=== PATIENT | female | born 1950 | race Caucasian/White ===

== ENCOUNTER → 2022-07-12 | Outpatient (CLI) | payer MEDICARE, SELFPAY ==
--- NOTE | 2022-07-12 08:53 | BI_ITS ---
MAMMOGRAPHY - BILATERAL SCREENING REASON FOR EXAM: Female, 71 years old. Routine annual screening examination. PERTINENT HISTORY: Non-contributory. TECHNIQUE: Digital bilateral breast stanton (3D mammographic acquisition) in the CC and MLO projections. 2-D mediolateral oblique (MLO) and craniocaudad (CC) views of both breasts were obtained. CAD: Full Field Digital Mammography with Computer Added Detection was performed. COMPARISON: Comparison is made with prior outside examination dated October 19, 2020. FINDINGS: Breast Composition: The breasts are heterogeneously dense, which may obscure small masses. There are no dominant masses or suspicious calcifications. No other significant abnormalities are identified. There has been no significant change since the prior study. BI/SCRN MAMM (CAD)W/STANTON BILAT IMPRESSION: Stable bilateral screening mammogram. Yearly follow-up mammogram recommended. (A) ASSESSMENT CATEGORY: BIRADS Category 1: Negative. A letter regarding these results will be sent to the patient by the facility within 30 days. Approximately 10% of breast cancers are not detected by mammography. A normal mammogram should not delay biopsy of a clinically suspicious abnormality. [id number] Electronically Signed: Yunior Butler MD at 13:40 EDT ,
--- NOTE | 2022-07-12 09:00 | BD_ITS ---
STUDY: DUAL ENERGY X-RAY ABSORPTIOMETRY / DXA REASON FOR EXAM: Female, 71 years old. [id number] TECHNIQUE: Bone Mineral Density (BMD) measurements of lumbar spine and bilateral hips were obtained. COMPARISON: None. FINDINGS: Lumbar Spine (L1-L4): g/cm2 (1.056) / T-score (0.1) / Z-score (2.3) Findings are suggestive of normal bone density with a low fracture risk. Left Femur Total: g/cm2 (0.642) / T-score (-2.5) / Z-score (-0.9) Left Femoral Neck: g/cm2 (0.594) / T-score (-2.3) / Z-score (-0.4) Right Femur Total: g/cm2 (0.648) / T-score (-2.4) / Z-score (-0.8) Right Femoral Neck: g/cm2 (0.529) / T-score (-2.9) / Z-score (-1.0) BD/Dexa Bone Density Study IMPRESSION: The patient is considered osteoporotic as outlined below according to World [employer] Organization (WHO) criteria with a high fracture risk. Reference Information: The T-score is the number of standard deviations above or below the standard which is normal for young adults at their peak bone mineral density. The World Health Organization (WHO) interprets the T-scores as follows: Above -1 Normal bone density Between -1 and -2.5 Osteopenia Equal to / or below -2.5 Osteoporosis As a practical clinical guideline, osteopenia may be graded as follows: Mild -1 through -1.5 Moderate -1.6 through -2.0 Severe -2.1 through -2.4 The Z-score is the number of standard deviations above or below age-matched controls. A Z-score of less than -1.5 would be considered abnormal. References: 1. NIH Osteoporosis and Related Bone Diseases www osteo.org 2. International Society for Clinical Densitometry www iscd.org 3. National Osteoporosis Foundation www nof.org Electronically Signed: Yunior Butler MD at 9:04 EDT ,
== END | disposition home or self-care (01) ==
PROVIDERS: PCP Internal Medicine; Referring Provider Internal Medicine; Visit Provider Internal Medicine
DX: Z12.31 Encounter for screening mammogram for malignant neoplasm of breast (principal); Z78.0 Asymptomatic menopausal state
CPT/HCPCS: 77063; 77067; 77080

== ENCOUNTER → 2023-11-06 | Outpatient (CLI) | payer MEDICARE, OTHER, SELFPAY ==
--- NOTE | 2023-11-06 14:09 | VDLE_ITS ---
Reason For Study: RLE Swelling RIGHT GSV is normal. CFV is compressible, spontaneous, phasic, competent and demonstrates normal augmentation. FV is compressible, spontaneous, phasic, competent and demonstrates normal augmentation. POP V is compressible, spontaneous, phasic, competent and demonstrates normal augmentation. T/P Trunk is compressible. PTV is compressible. RT PerV is compressible. Procedure This is a venous duplex using B-mode, color flow and spectral Doppler. Exam performed in department. The exam was diagnostic. A preliminary report was called and/or faxed to [facility]. VL/Venous Duplex US, Unilateral Interpretation Summary Deep veins of the right lower extremity are patent and compressible segmentally . There is no evidence of right lower extremity deep vein thrombosis. Valvular competence juan r ears intact within the proximal deep venous system on the right . The right great saphenous vein a ppears patent and compressible segmentally. Ordering Physician: Doris Smith Referring Physician: Lynn Woodruff Performed By: Ozzy Holloway RVT
== END | disposition home or self-care (01) ==
LOC: CVS 14:09
PROVIDERS: PCP Internal Medicine; Referring Provider Nurse Practitioner Family; Visit Provider Nurse Practitioner Family
DX: M79.604 Pain in right leg (principal)
CPT/HCPCS: 93971

== ENCOUNTER → 2024-07-22 | Outpatient (CLI) | payer MEDICARE, OTHER, SELFPAY ==
--- NOTE | 2024-07-22 11:40 | BI_ITS ---
EXAM: SCRN MAMM (CAD)W/STANTON BILAT DATE: 07/22/2024 CLINICAL HISTORY: F, Age 73 y/o , SCRN MAMM (CAD)W/STANTON BILAT Prior needle biopsy. BREAST CANCER RISK ASSESSMENT: Not assessed. TECHNIQUE: Bilateral screening digital breast tomosynthesis with 2D and 3D images. Computer aided detection. COMPARISON: Prior exam(s) dated July 12, 2022.. FINDINGS: TISSUE DENSITY: The breast tissue is heterogenously dense, which may obscure small masses. Bilateral Breast Mammographic Findings: There is a questionable 1.3 cm nodule in the deep central portion of the right breast as seen on the craniocaudad projection. The patient will be recalled for additional views. BI/SCRN MAMM (CAD)W/STANTON BILAT IMPRESSION: OVERALL FINAL ASSESSMENT: BIRADS 0 Incomplete: Need additional imaging evaluati on and/or prior mammograms for comparison. RECOMMENDATION: 90 degree lateral and compression spot views of the right breast as described. A letter with findings and recommendations will be mailed to the patient. Reading Location: [place] [id number]
--- NOTE | 2024-07-22 11:44 | BD_ITS ---
PROCEDURE: DEXA BONE DENSITY STUDY 07/22/2024 REASON FOR EXAM: F, age 73 y/o . Postmenopausal. TECHNIQUE: DXA scan of sites with data reported below. REFERENCE LINKS: [facility] Adult Positions COMPARISON: July 12, 2022. FINDINGS: BMD and T-SCORES Lumbar spine: 1.034 g/cm2, T-score -0.1 Levels: L1 through L4 Change from prior: Worsening of 2.1%. Left femoral neck: 0.720 g/cm2, T-score -1.2 Femoral neck comparison data not recommended for monitoring change. Left total hip: 0.637 g/cm2, T-score -2.5 Change from prior: Worsening by 0.8%. Right femoral neck: 0.525 g/cm2, T-score -2.9 Femoral neck comparison data not recommended for monitoring change. Right total hip: 0.595 g/cm2, T-score -2.8 Change from prior: Loss of 8.2%. The World Health Organization has defined the following categories based on bone density: Normal bone density: T-score equal to or greater than -1.0 Osteopenia: T-score between -1.0 and -2.5 Osteoporosis: T-score equal to or less than -2.5 The patient does meet the pharmacological treatment recommendations for prevention of osteoporosis. BD/Dexa Bone Density Study IMPRESSION: OSTEOPOROSIS. Recommend follow-up as clinically warranted. Reading Location: [place] [id number]
== END | disposition home or self-care (01) ==
PROVIDERS: PCP Internal Medicine; Referring Provider Internal Medicine; Visit Provider Internal Medicine
DX: Z12.31 Encounter for screening mammogram for malignant neoplasm of breast (principal); Z78.0 Asymptomatic menopausal state
CPT/HCPCS: 77063; 77067; 77080

== ENCOUNTER → 2024-07-25 | Outpatient (CLI) | payer MEDICARE, OTHER, SELFPAY ==
--- NOTE | 2024-07-25 12:40 | BI_ITS ---
EXAM: DIAG MAMM W/CAD, UNILAT N/A CLINICAL HISTORY: F, Age 73 y/o , ABD JAYDEN TECHNIQUE: Bilateral Diagnostic digital breast tomosynthesis with 2D and 3D images. Computer aided detection. Compression spot views were obtained. COMPARISON: Prior exam(s) dated July 22, 2024.. FINDINGS: TISSUE DENSITY: The breast tissue is heterogenously dense, which may obscure small masses. Bilateral Breast Mammographic Findings: The questionable density seen on the screening mammogram most likely represents asymmetrical breast tissue. Targeted sonographic correlation recommended. BI/DIAG MAMM W/CAD, UNILAT IMPRESSION: OVERALL FINAL ASSESSMENT: BIRADS 0 Incomplete: Need additional imaging evaluati on and/or prior mammograms for comparison.. RECOMMENDATION: Targeted sonographic correlation recommended. A letter with findings and recommendations will be mailed to the patient. Reading Location: [place] [id number]
--- NOTE | 2024-07-25 13:12 | US_ITS ---
PROCEDURE: BREAST LIMITED UNILATERAL 07/25/2024 REASON FOR EXAM: ABN MAMM TECHNIQUE: Targeted right breast ultrasound. COMPARISON: Prior mammogram dated July 25, 2024 and July 22, 2024. FINDINGS: Right breast ultrasound was targeted to the right axillary region.. There is a 1.5 cm x 0.8 cm x 0.6 cm benign-appearing lymph node at the 11 o'clock position of the breast at 10 cm from the nipple. US/Breast Limited Unilateral IMPRESSION: 1.5 cm x 0.8 cm x 0.6 cm benign-appearing lymph node at the 11 o'clock position of the breast at 10 cm from the nipple. Follow-up code: Routine Follow-up. BI-RADS category 2. Reading Location: [place] [address]
== END | disposition home or self-care (01) ==
PROVIDERS: PCP Internal Medicine; Referring Provider Internal Medicine; Visit Provider Internal Medicine
DX: R92.8 Other abnormal and inconclusive findings on diagnostic imaging of breast (principal)
CPT/HCPCS: 76642; 77065

== ENCOUNTER → 2024-09-26 | Outpatient (CLI) | payer MEDICARE, OTHER, SELFPAY ==
--- NOTE | 2024-09-26 12:17 | US_ITS ---
PROCEDURE: TRANSVAGINAL NON- 09/26/2024 REASON FOR EXAM: TRANSVAGINAL ULTRASOUND Patient is postmenopausal. TECHNIQUE: TRANSVAGINAL NON- COMPARISON: None FINDINGS: Measurements: Uterus: 5.9 cm x 4 cm x 3.3 cm with a volume of 41.74 mL Endometrial Thickness: 5 mm. This is thickened for the postmenopausal state. Right Ovary: Not visualized. Left Ovary: Not visualized. Uterus: Heterogeneous echotexture of the myometrium suggestive of fibroid change with multiple punctate calcifications although no evidence of circumscribed fibroid. Endometrium: Endometrium thickening. Small amount of endometrial fluid. Right ovary: Not visualized. Left ovary: Not visualized. Other: US/Transvaginal Non- IMPRESSION: Heterogeneous echotexture of the myometrium suggestive of fibroid change althou gh no focal fibroid is seen. Endometrial thickening with small amount of endometrial fluid. Clinical correl ation recommended for the postmenopausal state. Reading Location: [place]
--- OUTSIDE RECORDS SUMMARY | 2024-09-26 18:38 | XMS RPT_ITS | CCD ---
Author Organization [facility] CliniSynh Care Team Providers Care Corporate Wellness Coordinator Name Role Phone DAMIEN SARAH Referring Unavailable DAMIEN SARAH Attending Unavailable KERWIN MAGALLANES Referring Unavailable No, Referral Unavailable Unavailable Piotr Vasquez MD, [facility] Provi era Piotr Vasquez MD, [facility] Provi era No, Referral Unavailable Unavailable Piotr Vasquez MD, Holed[facility] Provi era HOLDEN GUY JR Referring Unavail able HOLDEN GUY JR Primary Care Unavail able MONICA RUSSELL Primary Care Unavailable HOLDEN GUY JR Referring Unavail able HOLDEN GUY JR Attending Unavail able HOLDEN GUY JR Primary Care Unavail able HOLDEN GUY JR Primary Care Unavail able JOBY GUAMAN Referring Unavailable DAWSON SANTIAGO Attending Unavailable HOLDEN GUY JR Primary Care Unavail able HOLDEN GUY JR Attending Unavail able Marcella Aguilar MD Unavailable [phone] Slaviktoria BARKLEY, Juliana Unavailable Unavailable Marcella Aguilar MD Attending Unavailable Marcella Aguilar MD Referring Unavailable Marcella Aguilar MD Consulting Unavailable Segundo , Dr. Norris Unavailable Chelsie Guevara MA Unavailable Unavailable Georgiana Cain Lizbeth Unavailable Shira YUNN, Mark Unavailable Unavailable No, Referral Unavailable Unavailable Piotr Vasquez MD, [facility] Provi era MARCELLA AGUILAR Referring Unavailable MARCELLA AGUILAR Primary Care Unavailable Marcella Aguilar MD Primary Care Provider Kacy BOND, Dr. Bailey Primary Care Provider Kacy BOND, Dr. Bailey Attending Provider Dr. Marcella Aguilar MD Referring Provider [phone] Marcella Aguilar Attending Unavailable Bonezzi, Marcella Referring Unavailable Bonezzi, Marcella Primary Care Unavailable Bonezzi, Marcella Attending Unavailable Bonezzi, Marcella Referring Unavailable Bonezzi, Marcella Primary Care Unavailable Bonezzi, Marcella Attending Unavailable Bonezzi, Marcella Referring Unavailable Bonezzi, Marcella Primary Care Unavailable Luis, Doris Attending Unavailable Luis, Doris Referring Unavailable Bonezzi, Marcella Primary Care Unavailable Allergies Allergy Classification Reported Allergen(s) Allergy Type Date of Onset Reaction(s) Facility (16 sources) PROCHLORPERAZINE EDISYLATE; Translations: [PROCHLORPERAZINE EDISYLATE] Propensity to adverse reactions to drug (disorder) 01-02-20 12 Other: See Comments [facility] Repository (10 sources) Prochlorperazine Drug Allergy Comprehensi ve Internal Medicine; [facility] Work Phone: (1 source) ALLERGIES NOT ON FILE; Translations: [ALLERGIES NOT ON FILE] Propensity to adverse reactions (disorder) [facility] Medications Current Medications Medication Drug Class(es) Dates Sig (Normalized) Sig (Original) celecoxib 200 mg oral capsule (13 sources) Nonsteroidal Anti-inflammatory Drug Start: 10-26-2021 take 1 capsule by mouth once daily celecoxib (CELEBREX) 200 mg capsule Indications: Hip pain Take 1 capsule by mouth once daily. 60 capsule 1 10/26/2021 Active Comment on above: Take 1 capsule by [facility] once daily. 24 hr felodipine 10 mg extended release oral tablet (20 sources) Dihydropyridine Calcium Channel Clement Start: 01-12-2023 take 1 tablet by mouth once daily felodipine ER (PLENDIL) 10 mg 24 hr tablet Indications: Hypertension, essential take 1 tablet by mouth every day 90 tablet 1 01/12/2023 Active Start: 02-03-2022 End: 08-02-2022 take 1 tablet by mouth once daily felodipine ER (PLENDIL) 10 mg 24 hr tablet Indications: Hypertension, essential Take 1 tablet by mouth once daily. 90 tablet 1 02/03/2022 08/02/2022 Active Start: 10-24-2021 End: 02-03-2022 felodipine ER (PLENDIL) 10 m g 24 hr tablet Comment on above: Take 1 tablet by rocco th once daily. take 1 tablet by rocco th every day hydroCHLOROthiazide 25 mg oral tablet (20 sources) Thiazide Diuretic Start: End: 023 take 1 tablet by mouth once daily hydroCHLOROthiazide 25 mg tablet Indications: Hypertension, essential TAKE 1 TABLET BY MOUTH EVERY DAY 90 tablet 06/19/2022 Active Start: 09-09-2021 End: 01-10-2022 take 1 capsule by mouth once daily hydroCHLOROthiazide (HYDRODIURIL, ESIDRIX) 12.5 mg capsule Take 12.5 mg by mouth once daily. 0 09/09/2021 01/10/2022 Discontinued (Dosage adjustment) hydroCHLOROthiaz mc daily Inactive hydroCHLOROthiaz mc daily Active End: 01-10-2022 take 1 tablet by mouth once daily hydroCHLOROthiazide (HYDRODIURIL, ESIDRIX) 12.5 mg tablet Take 12.5 mg by mouth once daily. 0 01/10/2022 Discontinued (Dosage adjustment) Comment on above: Take 1 tablet by rocco th once daily. Take 12.5 mg by mout h once daily. TAKE 1 TABLET BY ROCCO TH EVERY DAY Completed/Discontinued Medications Medication Drug Class(es) Dates Sig (Normalized) Sig (Original) carvedilol 6.25 mg oral tablet (8 sources) alpha-Adrenergic Clement, beta-Adrenergic Clement End: 02-03-2022 take 2 tablets by mouth twice daily in the evening carvedilol (COREG) 6.25 mg tablet Take 6.25 mg by mouth twice daily. Pt takes two tablets in the am and two tablets in the pm. 0 02/03/2022 Discontinued (Clinical Decision) Comment on above: Take 6.25 mg by mout h twice daily. Pt takes two tablets in the am and two tablets in the pm. olmesartan medoxomil 20 mg oral tablet (8 sources) Angiotensin 2 Receptor Clement End: 02-03-2022 take 20 mg by mouth once daily olmesartan medoxomil (OLMESARTAN ORAL) Take 20 mg by mouth once daily. 0 02/03/2022 Discontinued (Clinical Decision) Comment on above: Take 20 mg by mouth once daily. Problems Active Problems Problem Classification Problem Date Documented Date Episodic/Chronic Abdominal pain (1 source) Unspecified abdominal pain; Translations: [Unspecified abdominal pain] Onset: Episodic Anxiety disorders (16 sources) Acute stress disorder; Translations: [Stress reaction (Renamed from Acute reaction to stress)] 07-25-2022 Chronic Comment on above: had [place]--not drive able to do ADLS--looking at someone coming in Disorders of lipid metabolism (19 sources) Hyperlipidemia; Translations: [Hyperlipidemia, mild] Onset: 024 07-25-2022 Chronic Comment on above: intermittent fasting works well for herCCTA 2008 good Essential hypertension (20 sources) Hypertensive disorder; Translations: [Essential (primary) hypertension] Onset: Chronic Comment on above: tried off meds and B P up. sodium low not able to cut hctz in halfACEI and ARB did not work. did secondary work up. Fluid and electrolyte disorders (16 sources) Hyponatremia; Translations: [Hyponatremia] 07-25-2022 Episodic Comment on above: she is on HCTZ. so w ill not do urine studies but check osmol. she is on HCTZ. so w ill not do urine studies but check osmol. if stable Immunizations and screening for infectious disease (20 sources) Autoantibody level - finding; Translations: [Anti-TPO antibodies present] 04-20-2022 Episodic Nutritional deficiencies (20 sources) Vitamin D deficiency; Translations: [Vitamin D deficiency, unspecified] Onset: Chronic Comment on above: was too high ow at 5 0's willadd back cvitm D in her calcium Osteoporosis (20 sources) Senile osteoporosis; Translations: [Age-related osteoporosis without current pathological fracture] Onset: Chronic Comment on above: refuse meds. on calc uim refuse meds refuse meds. on calc uim refuse meds BD 07-18 RTFn -2.9 about same as 2019 Other connective tissue disease (1 source) Trochanteric bursitis of left hip; Translations: [Trochanteric bursitis, left hip] Episodic Other connective tissue disease (1 source) Tendinitis of hip; Translations: [Other specified enthesopathies of left lower limb, excluding foot] Episodic Other connective tissue disease (16 sources) Bursitis of left hip; Translations: [Bursitis of left hip, unspecified bursa] 07-25-2022 Episodic Comment on above: stretching helps. Other non-traumatic joint disorders (1 source) Hip pain; Translations: [Pain in unspecified hip] Episodic Other nutritional; endocrine; and metabolic disorders (20 sources) Hypervitaminosis D; Translations: [Vitamin D intoxication] Resolve d: 04-20-2022 Chronic Other conditions (20 sources) Elevated C-reactive protein; Translations: [Elevated C-reactive protein in ] 04-20-2022 Episodic Other screening for suspected conditions (not mental disorders or infectious disease) (20 sources) Patient encounter status; Translations: [Encounter for screening mammogram for malignant neoplasm of breast] Onset: Episodic Other skin disorders (1 source) Alopecia areata; Translations: [Alopecia areata, unspecified] Episodic Other skin disorders (1 source) Alopecia areata, unspecified; Translations: [Alopecia areata] Onset: Episodic Other skin disorders (20 sources) Loss of hair; Translations: [Hair loss] 04-20-2022 Episodic Phlebitis; thrombophlebitis and thromboembolism (20 sources) H/O: Deep vein thrombosis; Translations: [History of DVT (deep vein thrombosis)] 04-20-2022 Episodic Comment on above: after bunion surgery . 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] 04-20-2022 Episodic Residual codes; unclassified (20 sources) Postmenopausal state; Translations: [Postmenopausal (Renamed from Postmenopausal status)] 04-20-2022 Episodic Residual codes; unclassified (16 sources) Body mass index 20-24 - normal; Translations: [BMI 23.0-23.9, adult] 07-25-2022 Episodic Residual codes; unclassified (16 sources) Non-smoker; Translations: [Nonsmoker] 07-25-2022 Episodic Unclassified (1 source) New Onset: Unclassified (20 sources) Past or Other Problems Problem Classification Problem Date Documented Da te Episodic/Chronic Other connective tissue disease (1 source) Pain in right leg; Translations: [Pain in right leg] Onset: 11-26-2023 Episodic Other non-traumatic joint disorders (1 source) Pain in unspecified hip; Translations: [Hip pain] Onset: 10-26-2021 Episodic Unclassified (14 sources) Unspecified Diagnosis 06-23-2022 Results Test Name Value Interpretation Reference Range Facility Breast Limited Unilateralon 07-25-2024 Breast Limited Unilateral [facility] Imaging Services [address], [place] [id number] Breast Limited Unilateral MR#: [id number] Acct: [id number] Name: EMMANUELLE ABREU Rep #: [id number] : 1950 F 73 From: Yunior lópez MD PCP: Dr. Marcella Aguilar MD Status: REG CL Study: Breast Limited Unilateral Date of Exam: Exam# [id number] Ordering Dr: Marcella Aguilar MD PROCEDURE: BREAST LIMITED UNILATERAL 07/25/2024 REASON FOR EXAM: ABN MAMM TECHNIQUE: Targeted right breast ultrasound. COMPARISON: Prior mammogram dated July 25, 2024 and July 22, 2024. FINDINGS: Right breast ultrasound was targeted to the right axillary region.. There is a 1.5 cm x 0.8 cm x 0.6 cm benign-appearing lymph node at the 11 o'clock position of the breast at 10 cm from the nipple. US/Breast Limited Unilateral IMPRESSION: 1.5 cm x 0.8 cm x 0.6 cm benign-appearing lymph node at the 11 o'clock position of the breast at 10 cm from the nipple. Follow-up code: Routine Follow-up. BI-RADS category 2. Reading Location: [facility] CC: Dr. Marcella Aguilar MD Switch Box Installer: Signed Normal [facility] Breast imaging reportOrdered By: Yunior Butler on 07-25-2024 Study report [facility] Imaging Services [address] [place] [address] DIAG MAMM W/CAD, UNILAT MR#: [id number] Acct: [id number] Name: EMMANUELLE ABREU Rep #: [id number] : 1950 From: Salvador Butler MD PCP: Dr. Marcella Aguilar MD Status: REG C LI Study:DIAG MAMM W/CAD, UNILAT Date of Exam: 07/25/24 Exam# [id number] Ordering Dr: Marcella Aguilar MD EXAM: DIAG MAMM W/CAD, UNILAT N/A CLINICAL HISTORY: F, Age 73 y/o , ABD JAYDEN TECHNIQUE: Bilateral Diagnostic digital breast tomosynthesis with 2D and 3D images. Computer aided detection. Compression spot views were obtained. COMPARISON: Prior exam(s) dated July 22, 2024.. FINDINGS: TISSUE DENSITY: The breast tissue is heterogenously dense, which may obscure small masses. Bilateral Breast Mammographic Findings: The questionable density seen on the screening mammogram most likely represents asymmetrical breast tissue. Targeted sonographic correlation recommended. BI/DIAG MAMM W/CAD, UNILAT IMPRESSION: OVERALL FINAL ASSESSMENT: BIRADS 0 Incomplete: Need additional imaging evaluation and/or prior mammograms for comparison.. RECOMMENDATION: Targeted sonographic correlation recommended. A letter with findings and recommendations will be mailed to the patient. Reading Location: [place] [address] CC: Dr. Marcella Aguilar MD ~ Switch Box Installer: Signed [facility] DIAG MAMM W/CAD, UNILATon DIAG MAMM W/CAD, UNILAT [facility] Imaging Services [address] [place] [address] DIAG MAMM W/CAD, UNILAT MR#: [id number] Acct: [id number] Name: EMMANUELLE ABREU Rep #: [id number] : 1950 73 From: Yunior lópez MD PCP: Dr. Marcella Aguilar MD Status: REG CLI Study: DIAG MAMM W/CAD, UNILAT Date of Exam: 07/25/24 Exam# [id number] Ordering Dr: Marcella Aguilar MD EXAM: DIAG MAMM W/CAD, UNILAT N/A CLINICAL HISTORY: F, Age 73 y/o , ABD JAYDEN TECHNIQUE: Bilateral Diagnostic digital breast tomosynthesis with 2D and 3D images. Computer aided detection. Compression spot views were obtained. COMPARISON: Prior exam(s) dated July 22, 2024.. FINDINGS: TISSUE DENSITY: The breast tissue is heterogenously dense, which may obscure small masses. Bilateral Breast Mammographic Findings: The questionable density seen on the screening mammogram most likely represents asymmetrical breast tissue. Targeted sonographic correlation recommended. BI/DIAG MAMM W/CAD, UNILAT IMPRESSION: OVERALL FINAL ASSESSMENT: BIRADS 0 Incomplete: Need additional imaging evaluation and/or prior mammograms for comparison.. RECOMMENDATION: Targeted sonographic correlation recommended. A letter with findings and recommendations will be mailed to the patient. Reading Location: [place] [address] CC: Dr. Marcella Aguilar MD Switch Box Installer: Signed Normal [facility] Bone density reportOrdered B y: Yunior Butler on 07-22-2024 Study report Skeletal system DXA [facility] Imaging Services [address] [place] [address] Dexa Bone Density Study MR#: [id number] Acct: [id number] Name: EMMANUELLE ABREU Rep #: [id number] : 1950 F 73 From: Salvador Butler MD PCP: Dr. Marcella Aguilar MD Status: REG Marcela LIND Study:Dexa Bone Density Study Date of Exam: 07/22/24 Exam# [id number] Ordering Dr: Marcella Aguilar MD PROCEDURE: DEXA BONE DENSITY STUDY 07/22/2024 REASON FOR EXAM: F, age 73 y/o . Postmenopausal. TECHNIQUE: DXA scan of sites with data reported below. REFERENCE LINKS: ISCD Adult Positions COMPARISON: July 12, 2022. FINDINGS: BMD and T-SCORES Lumbar spine: 1.034 g/cm2, T-score -0.1 Levels: L1 through L4 Change from prior: Worsening of 2.1%. Left femoral neck: 0.720 g/cm2, T-score -1.2 Femoral neck comparison data not recommended for monitoring change. Left total hip: 0.637 g/cm2, T-score -2.5 Change from prior: Worsening by 0.8%. Right femoral neck: 0.525 g/cm2, T-score -2.9 Femoral neck comparison data not recommended for monitoring change. Right total hip: 0.595 g/cm2, T-score -2.8 Change from prior: Loss of 8.2%. The World Health Organization has defined the following categories based on bonedensity: Normal bone density: T-score equal to or greater than -1.0 Osteopenia: T-score between -1.0 and -2.5 Osteoporosis: T-score equal to or less than -2.5 The patient does meet the pharmacological treatment recommendations for prevention of osteoporosis. BD/Dexa Bone Density Study IMPRESSION: OSTEOPOROSIS. Recommend follow-up as clinically warranted. Reading Location: [place] [address] CC: Dr. Marcella Aguilar MD ~ Switch Box Installer: Signed [facility] Breast imaging reportOrdered By: Yunior Butler on 07-22-2024 Study report [facility] Imaging Services [address] [place] [address] SCRN MAMM (CAD)W/STANTON BILAT MR#: [id number] Acct: [id number] Name: EMMANUELLE ABREU ISAI Rep #: [id number] : 1950 F 73 From: Salvador Butler MD PCP: Dr. Marcella Aguilar MD Status: REG C DIOGO Study:SCRN MAMM (CAD)W/STANTON BILAT Date of Exa m: 07/22/24 Exam# [id number] Ordering Dr: Marcella Aguilar MD EXAM: SCRN MAMM (CAD)W/STANTON BILAT DATE: 07/22/2024 CLINICAL HISTORY: F, Age 73 y/o , SCRN MAMM (CAD)W/STANTON BILAT Prior needle biopsy. BREAST CANCER RISK ASSESSMENT: Not assessed. TECHNIQUE: Bilateral screening digital breast tomosynthesis with 2D and 3D images. Computeraided detection. COMPARISON: Prior exam(s) dated July 12, 2022.. FINDINGS: TISSUE DENSITY: The breast tissue is heterogenously dense, which may obscure small masses. Bilateral Breast Mammographic Findings: There is a questionable 1.3 cm nodule in the deep central portion of the right breast as seen on the craniocaudad projection. The patient will be recalled for additional views. BI/SCRN MAMM (CAD)W/STANTON BILAT IMPRESSION: OVERALL FINAL ASSESSMENT: BIRADS 0 Incomplete: Need additional imaging evaluation and/or prior mammograms for comparison. RECOMMENDATION: 90 degree lateral and compression spot views of the right breast as described. A letter with findings and recommendations will be mailed to the patient. Reading Location: [place] [address] CC: Dr. Marcella Aguilar MD ~ Switch Box Installer: Signed [facility] Dexa Bone Density Studyon Dexa Bone Density Study [facility] Imaging Services [address] [place] [id number] Dexa Bone Density Study MR#: [id number] Acct: [id number] Name: EMMANUELLE ABREU Rep #: [id number] : 1950 F 73 From: Yunior lópez MD PCP: Dr. Marcella Aguilar MD Status: REG CLI Study: Dexa Bone Density Study Date of Exam: 07/22/24 Exam# [id number] Ordering Dr: Marcella Aguilar MD PROCEDURE: DEXA BONE DENSITY STUDY 07/22/2024 REASON FOR EXAM: F, age 73 y/o . Postmenopausal. TECHNIQUE: DXA scan of sites with data reported below. [facility] COMPARISON: July 12, 2022. FINDINGS: BMD and T-SCORES Lumbar spine: 1.034 g/cm2, T-score -0.1 Levels: L1 through L4 Change from prior: Worsening of 2.1%. Left femoral neck: 0.720 g/cm2, T-score -1.2 Femoral neck comparison data not recommended for monitoring change. Left total hip: 0.637 g/cm2, T-score -2.5 Change from prior: Worsening by 0.8%. Right femoral neck: 0.525 g/cm2, T-score -2.9 Femoral neck comparison data not recommended for monitoring change. Right total hip: 0.595 g/cm2, T-score -2.8 Change from prior: Loss of 8.2%. The World Health Organization has defined the following categories based on bone density: Normal bone density: T-score equal to or greater than -1.0 Osteopenia: T-score between -1.0 and -2.5 Osteoporosis: T-score equal to or less than -2.5 The patient does meet the pharmacological treatment recommendations for prevention of osteoporosis. BD/Dexa Bone Density Study IMPRESSION: OSTEOPOROSIS. Recommend follow-up as clinically warranted. Reading Location: [place] [address] CC: Dr. Marcella Aguilar MD Switch Box Installer: Signed Normal [facility] SCRN MAMM (CAD)W/STANTON BILATo n 07-22-2024 SCRN MAMM (CAD)W/STANTON BILAT [facility] Imaging Services [address] [place] [id number] SCRN MAMM (CAD)W/STANTON BILAT MR#: [id number] Acct: [id number] Name: EMMANUELLE ABREU Rep #: [id number] : 1950 F 73 From: Yunior lópez MD PCP: Dr. Marcella Aguilar MD Status: REG CL Study: SCRN MAMM (CAD)W/STANTON BILAT Date of Exam: 06/27 09/19 Exam# [id number] Ordering Dr: Marcella Aguilar MD EXAM: SCRN MAMM (CAD)W/STANTON BILAT DATE: 07/22/2024 CLINICAL HISTORY: F, Age 73 y/o , SCRN MAMM (CAD)W/STANTON BILAT Prior needle biopsy. BREAST CANCER RISK ASSESSMENT: Not assessed. TECHNIQUE: Bilateral screening digital breast tomosynthesis with 2D and 3D images. Computer aided detection. COMPARISON: Prior exam(s) dated July 12, 2022.. FINDINGS: TISSUE DENSITY: The breast tissue is heterogenously dense, which may obscure small masses. Bilateral Breast Mammographic Findings: There is a questionable 1.3 cm nodule in the deep central portion of the right breast as seen on the craniocaudad projection. The patient will be recalled for additional views. BI/SCRN MAMM (CAD)W/STANTON BILAT IMPRESSION: OVERALL FINAL ASSESSMENT: BIRADS 0 Incomplete: Need additional imaging evaluation and/or prior mammograms for comparison. RECOMMENDATION: 90 degree lateral and compression spot views of the right breast as described. A letter with findings and recommendations will be mailed to the patient. Reading Location: [place] [address] CC: Dr. Marcella Aguilar MD Switch Box Installer: Signed Normal [facility] CT CARDIAC SCORING WO IV CON TRASTon 11-21-2023 CT CARDIAC SCORING WO IV CONTRAST Interpreted By: Xavier Guy, STUDY: CT CARDIAC SCORING WO IV CONTRAST; 11/21/2023 3:34 pm INDICATION: Signs/Symptoms:E78.5. ,E78.5 Hyperlipidemia, unspecified COMPARISON: None. ACCESSION NUMBER(S): [id number] ORDERING CLINICIAN: MARCELLA AGUILAR TECHNIQUE: Using prospective ECG gating, CT scan of the coronary arteries was performed without intravenous contrast. Coronary calcium scoring was performed according to the method of Agatston. FINDINGS: The score and distribution of calcium in the coronary arteries is as follows: LM 0, LAD 0, LCx 0, RCA 0, Total 0 The visualized mid/lower ascending thoracic aorta, is normal in size, measuring 36 mm in diameter. The heart is normal in size. No pericardial effusion is present.Main pulmonary artery is normal in caliber. There is no evidence of lymphadenopathy or mass within the visualized mediastinum.The visualized esophagus is unremarkable. The visualized segments of the lungsare normally expanded. The visualized subdiaphragmatic structures demonstrate no remarkable findings. IMPRESSION: Coronary artery calcium score of 0 *. *Coronary Artery Calcium Gated and Nongated Agatston score Score CHD Risk 0 Very low 1-99 Mildly increased 100-299 Moderately increased >300 Moderate to severely increased Vee et al. JCCT 2016 (http://dx.doi.org/10.1 016/j.jcct.2016.11.003) VIDAL 10-Year CHD Risk with Coronary Artery Calcification can be calculated using link below [email or web address]://[email or web address]-[email or web address] org/[email or web address]/MesaRis [email or web address].aspx Ivet. JACC 2014 (http://dx.doi.org/10.1 016/j.j acc.2014.08.035) MACRO: None Signed by: Xavier Guy 11/27/2023 12:43 PM Dictation workstation: [id number] [facility] Comment on above: Order Comment: PT TO BRING ORDER Venous Duplex US, Unilateral on 11-06-2023 Venous Duplex US, Unilateral [facility] Cardiovascular Services [address] [place] [address] Venous Duplex US, Unilateral 11/06/23 1426 MR#: [id number] Acct: [id number] Name: EMMANUELLE ABREU ISAI Rep #: [id number] : 1950 72 From: Akash Mares MD Attending Dr: Doris Smith, NEEDLE PUNCH MACHINE OPERATOR HELPER-C Status: REG CLI Ordering Dr: Doris Smith NEEDLE PUNCH MACHINE OPERATOR HELPER-C Date: 11/06/23 Location: [facility] Sex: F C Admitted: Reason For Study: RLE Swelling RIGHT GSV is normal. CFV is compressible, spontaneous, phasic, competent and demonstrates normal augmentation. FV is compressible, spontaneous, phasic, competent and demonstrates normal augmentation. POP V is compressible, spontaneous, phasic, competent and demonstrates normal augmentation. T/P Trunk is compressible. PTV is compressible. RT PerV is compressible. Procedure This is a venous duplex using B-mode, color flow and spectral Doppler. Exam performed in department. The exam was diagnostic. A preliminary report was called and/or faxed to [facility]. VL/Venous Duplex US, Unilateral Interpretation Summary Deep veins of the right lower extremity are patent and compressible segmentally. There is no evidence of right lower extremity deep vein thrombosis. Valvular competence appears intact within the proximal deep venous system on the right . The right great saphenous vein appears patent and compressible segmentally. Ordering Physician: Doris Smith Referring Physician: Marcella Aguilar Performed By: Ozzy Holloway, RVT 11/07/23850 Date Akash Mares MD CC: NEEDLE PUNCH MACHINE OPERATOR HELPER-C Doris Smith; Dr. Marcella Aguilar MD Date Dictated: 11/06/231425 Date Transcribed: 11/07/23850 Switch Box Installer: Signed Normal [facility] CALCIFIDIOL (60140) VIT D 25 Ordered By: Bushel Girl on 11-29-2022 25-hydroxyvitamin D [Mass/Vol] 57.1 ng/mL Normal 30.0-100.0 [facility]; [facility] Work Phone: Comment on above: Vitamin D deficiency has been defined by the [place] of[place] and an Endocrine Society practice guideline as alevel of serum 25-OH vitamin D less than 20 ng/mL (1,2).The Endocrine Society went on to further define vitamin Dinsufficiency as a level between 21 and 29 ng/mL (2).1. IOM ([place] of [employer]). 2010. Dietary reference intakes for calcium and D. [place]: The National Academies Press.2. Arpan MF, Jeanette NC, Shandra DEL CASTILLO, et al. Evaluation, treatment, and prevention of vitamin D deficiency: an Endocrine Society clinical practice guideline. JCEM. 2010; 96(7):1911-30. PATIENT NOT FASTINGP ERFORMED BY: [facility] Rdcahz9031 [facility] [id number] Metabolic Panel, Basic (8004 8)Ordered By: Bushel Girl on 11-29-2022 Calcium [Mass/Vol] 9.1 mg/dL Normal 8.7-10.3 [facility]; [facility] Work Phone: Comment on above: PATIENT NOT FASTINGP ERFORMED BY: CB [facility] Jkmovf1973 Key[address] RoadDublin [place] [id number] Chloride [Moles/Vol] 93 mmol/L Abnormal 96-106 [facility]; [facility] Work Phone: Comment on above: PATIENT NOT FASTINGP ERFORMED BY: CB [facility] Ltygzw4590 Keyes RoadDublin [place] [id number] CO2 [Moles/Vol] 27 mmol/L Normal 20-29 [facility]; [facility] Work Phone: Comment on above: PATIENT NOT FASTINGP ERFORMED BY: CB [facility] Bxzaip3042 Keyes RoadGlendale [place] [id number] Creatinine [Mass/Vol] 0.75 mg/dL Normal 0.57-1.00 [facility]; [facility] Work Phone: Comment on above: PATIENT NOT FASTINGP ERFORMED BY: CB [facility] Hlhzgm6095 [address] RoadFormerly [facility] [place] [id number] GFR/1.73 sq M.predicted among non-blacks MDRD (S/P/Bld) [Vol rate/Area] 85 mL/min/{1.73_m2} Normal Comprehensiv e Internal Medicine; [facility] Work Phone: Comment on above: PATIENT NOT FASTINGP ERFORMED BY: CB [facility] Skekys4419 [address] RoadFormerly [facility] [place] [id number] Glucose [Mass/Vol] 95 mg/dL Normal 70-99 [facility]; [facility] Work Phone: Comment on above: PATIENT NOT FASTINGP ERFORMED BY: CB [facility] Qlwfzq4552 [address] RoadFormerly [facility] [place] [id number] Potassium [Moles/Vol] 3.7 mmol/L Normal 3.5-5.2 [facility]; [facility] Work Phone: Comment on above: PATIENT NOT FASTINGP ERFORMED BY: CB [facility] Yniwai2392 Keyes RoadDublin [place] [id number] Sodium [Moles/Vol] 132 mmol/L Abnormal 134-144 [facility] Internal Medicine; [facility] Work Phone: Comment on above: PATIENT NOT FASTINGP ERFORMED BY: DEMETRIA [facility] Lqnoki3278 [address] RoadFormerly [facility] [place] [id number] Urea nitrogen [Mass/Vol] 11 mg/dL Normal 8-27 [facility]; [facility] Work Phone: Comment on above: PATIENT NOT FASTINGP ERFORMED BY: [facility] Znstti85[address] [facility] [place] [id number] Urea nitrogen/Creatinin e [Mass ratio] 15 mg/mg Normal 12-28 [facility]; [facility] Work Phone: Comment on above: PATIENT NOT FASTINGP ERFORMED BY: [facility] Pjtnqa23[address] [facility] [id number] C-REACT PROT HIGH SENS(hsCRP ) (44441)Ordered By: Bushel Girl on 07-25-2022 CRP High sensitivity method [Mass/Vol] 3.26 mg/L Abnormal 0.00-3.00 [facility]; [facility] Work Phone: Comment on above: Relative Risk for Fu ture Cardiovascular Event Low <1.00 Average 1.00 - 3.00 High >3.00 PATIENT NOT FASTINGP ERFORMED BY: [facility] Lynceg[address] [facility] [id number] BY: PawSpot[address] [id number] Ferritin (13508)Ordered By: Bushel Girl on 07-25-2022 Ferritin [Mass/Vol] 155 ng/mL Abnormal 15-150 [facility]; [facility] Work Phone: Comment on above: PATIENT NOT FASTINGP ERFORMED BY: CB [facility] Uuurvk[address] [facility] [place] [id number] BY: PawSpot[address] [id number] OSMOLALITY BLOOD (90328)Orde red By: Bushel Girl on 07-25-2022 Osmolality [Osmolality] 273 mosm/kg Abnormal 280-301 [facility]; [facility] Work Phone: Comment on above: PATIENT NOT FASTINGP ERFORMED BY: Xencor6370 [facility] [id number] BY: PawSpot[address] [id number] SODIUM SERUM (83439)Ordered By: Bushel Girl on 07-25-2022 Sodium [Moles/Vol] 132 mmol/L Abnormal 134-144 [facility] Internal Medicine; [facility] Work Phone: Comment on above: PATIENT NOT FASTINGP ERFORMED BY: ZarthCode[address] [facility] HospitalYEOXIN VMallVidant Pungo Hospital [id number] BY: PawSpot[address] [id number] Celiac Panel (16983)Ordered By: Bushel Girl on 07-14-2022 Endomysium IgA Ql (S) Negative Normal [facility]; [facility] Work Phone: Comment on above: Test(s) 012325-Bqmoa lmalonic Acid, Serumwas developed and its performance characteristics determinedby [facility]. It has not been cleared or approved by the Foodand Drug Administration.PATIENT WAS FASTINGPERFORMED BY: ZarthCode70 [facility] [id number] BY: PawSpot[address] [id number] Gliadin peptide IgA Qn (S) 10 {units} Normal 0-19 [facility]; [facility] Work Phone: Comment on above: Negative 0 - 19 Weak Positive 20 - 30 Moderate to Strong Positive >30 Test(s) 072820-Cqxsy lmalonic Acid, Serumwas developed and its performance characteristics determinedby [facility]. It has not been cleared or approved by the Foodand Drug Administration.PATIENT WAS FASTINGPERFORMED BY: ZarthCode70 [facility] [id number] BY: PawSpot[address] [id number] Gliadin peptide IgG Qn (S) 3 {units} Normal 0-19 [facility]; [facility] Work Phone: Comment on above: Negative 0 - 19 Weak Positive 20 - 30 Moderate to Strong Positive >30 Test(s) 949691-Ogchk lmalonic Acid, Serumwas developed and its performance characteristics determinedby [employer]aw[employer]. It has not been cleared or approved by the Foodand Drug Administration.PATIENT WAS FASTINGPERFORMED BY: textPluslin[address] [place] [address] [id number] BY: PawSpot[address] [id number] IgA [Mass/Vol] 286 mg/dL Normal 64-422 Comprehens walker Internal Medicine; [facility] Work Phone: Comment on above: Test(s) 869806-Nxemk lmalonic Acid, Serumwas developed and its performance characteristics determinedby [facility]. It has not been cleared or approved by the [employer] Drug Administration.PATIENT WAS FASTINGPERFORMED BY: Mclowd Xhyiag[address] [place] [address] [id number] BY: PawSpot[address] [id number] tTG IgA Qn (S) <2 Normal 0-3 [facility] Mexico[facility] walker Internal Medicine; [facility] Work Phone: Comment on above: Negative 0 - 3 Weak Positive 4 - 10 Positive >10 . Tissue Transglutaminase (tTG) has been identified as the endomysial antigen. Studies have demonstr- ated that endomysial IgA antibodies have over 99% specificity for gluten sensitive enteropathy. Test(s) 356277-Uyszj lmalonic Acid, Serumwas developed and its performance characteristics determinedby [employer]. It has not been cleared or approved by the Foodand Drug Administration.PATIENT WAS FASTINGPERFORMED BY: EzeecubeSaint Clare's Hospital at SussexPkuamc[address] [place] [address] [id number] BY: PawSpot[address] [id number] tTG IgG Qn (S) 3 U/mL Normal 0-5 Comprehens [facility] Internal Medicine; [facility] Work Phone: Comment on above: Negative 0 - 5 Weak Positive 6 - 9 Positive >9 Test(s) 094199-Yfvbe lmalonic Acid, Serumwas developed and its performance characteristics determinedby [employer]. It has not been cleared or approved by the Foodand Drug Administration.PATIENT WAS FASTINGPERFORMED BY: Hamstersoft [facility] [id number] BY: PawSpot[address] [id number] HEPATITIS C ANTIBODY (32947) Ordered By: Bushel Girl on 07-14-2022 HCV Ab Signal/Cutoff IA [Rel units/Vol] Non-Reactive Normal [facility]; [facility] Work Phone: Comment on above: HCV antibody alone d oes not differentiate between previouslyresolved infection and active infection. Equivocal and ReactiveHCV antibody results should be followed up with an HCV RNA testto support the diagnosis of active HCV infection. Test(s) 288497-Glrdr lmalonic Acid, Serumwas developed and its performance characteristics determinedby [employer]. It has not been cleared or approved by the [employer] Drug Administration.PATIENT WAS FASTINGPERFORMED BY: ZarthCode70 [facility] [id number] BY: PawSpot[address] [id number] Homocysteine, Plasma (92860) Ordered By: Bushel Girl on 07-14-2022 Homocysteine [Moles/Vol] 9.5 umol/L Normal 0.0-19.2 [facility]; [facility] Work Phone: Comment on above: Test(s) 450887-Rinhk lmalonic Acid, Serumwas developed and its performance characteristics determinedby [employer]. It has not been cleared or approved by the Foodand Drug Administration.PATIENT WAS FASTINGPERFORMED BY: Mclowd Rbnhqp0228 [facility] [id number] BY: Labco[address] [id number] Methymalonic Acid, Serum (83 921)Ordered By: Bushel Girl on 07-14-2022 Methylmalonate [Moles/Vol] 150 nmol/L Normal 0-378 [facility]; [facility] Work Phone: Comment on above: Test(s) 660237-Wakxm lmalonic Acid, Serumwas developed and its performance characteristics determinedby PawSpot. It has not been cleared or approved by the Foodand Drug Administration.PATIENT WAS FASTINGPERFORMED BY: Xencor[address] [facility] ManagementFirst[facility] [id number] BY: [facility] [address] [id number] PARATHORMONE (27290)Ordered By: Bushel Girl on 07-14-2022 Parathyrin.intact [Mass/Vol] 17 pg/mL Normal 15-65 [facility] Internal Medicine; [facility] Work Phone: Comment on above: Test(s) 652751-Ddlxf lmalonic Acid, Serumwas developed and its performance characteristics determinedby Cardiola. It has not been cleared or approved by the Foodand Drug Administration.PATIENT WAS FASTINGPERFORMED BY: Xencor6370 buuteeqVidant Pungo Hospital [id number] BY: PawSpot[address] [id number] T3, FREE (TRIDOTHYRONINE) (3 2385)Ordered By: Bushel Girl on 07-14-2022 Free T3 [Mass/Vol] 2.9 pg/mL Normal 2.0-4.4 [facility] Internal Medicine; [facility] Work Phone: Comment on above: Test(s) 286872-Gbjaa lmalonic Acid, Serumwas developed and its performance characteristics determinedby PawSpot. It has not been cleared or approved by the Foodand Drug Administration.PATIENT WAS FASTINGPERFORMED BY: Mclowd Ghdebs[address] [facility] [id number] BY: PawSpot[address] [id number] T4, FREE (THYROXINE) (28214) Ordered By: Bushel Girl on 07-14-2022 Free T4 [Mass/Vol] 1.04 ng/dL Normal 0.82-1.77 [facility] Internal Medicine; [facility] Work Phone: Comment on above: Test(s) 328181-Koivd lmalonic Acid, Serumwas developed and its performance characteristics determinedby [facility]. It has not been cleared or approved by the Foodand Drug Administration.PATIENT WAS FASTINGPERFORMED BY: ZarthCode70 [facility] [id number] BY: Copanionton1447 [facility] [id number] Vitamin B-12 (cyanocobalamin ) (89888)Ordered By: Bushel Girl on 07-14-2022 Cobalamin (Vitamin B12) [Mass/Vol] 1563 pg/mL Abnormal 232-1245 [facility] Internal Medicine; [facility] Work Phone: Comment on above: Test(s) 721473-Ajcdo lmalonic Acid, Serumwas developed and its performance characteristics determinedby [facility]. It has not been cleared or approved by the Foodand Drug Administration.PATIENT WAS FASTINGPERFORMED BY: Xencor6370 [facility] [id number] BY: [facility] Uvtjrshejl4803 [facility] [id number] Marilee 03-07-2022 [facility] Telephone ([facility]) EMMANUELLE ABREU ([id number]) 1950 F EXC Date Time Provider Department 03/07/22 HOLDEN GUY JR [facility] During your visit today, we recorded the following information about you: Vy Alvarez Ma 03/07/2022 11:12 AM Signed ----- Message from Brisa Amanda sent at 03/07/2022 9:24 AM EST ----- Regarding: Giulia stroud Referral Subject Line Format: Medicine / [Provider Name] / [Issue] Patient has been identified by name and Date of (Y/N): y Patient: Emmanuelle Abreu Date of : 1950 Provider for this encounter: Holden Guy Jr, MD Reason for the call/escalation: Patient was told by their speed reading teacher that she needs to see an hand pattern marker . She needs a referral to be able to see the hand pattern marker that she was made an appointment with. She also needs to know where to send the blood work from her speed reading teacher to. She would like a call back to get this all sorted out. Was Patient Referred to [facility]/Seek Emergency Treatment (Y/N): n Did Patient Agree (Y/N): n/a Was An Attempt Made To Transfer The Patient To The Office (Y/N): y Were You Able To Reach Someone At The Office (Y/N): n If Yes - Patient Was Transferred To (Caregivers Name): n/a If No - Which [facility] Leadership Corporate Wellness Coordinator Did You Speak With Regarding This Patient: n/a Was an appointment scheduled (Y/N): n Reason patient was requesting visit (RFV/signs and symptoms/diagnosis) : n/a Person calling if other than patient: self Return call to if other than patient: self Best contact number: [phone] Thank you, Brisa Patel March 07, 2022 9:24 AM Vy Alvarez Ma 03/07/2022 11:14 AM Signed Wants referral to endo Vy Alvarez Ma 03/07/2022 2:37 PM Signed Left msg for pt to CB with more details of speed reading teacher thinks she should see a specialist Vy Alvarez Ma 03/07/2022 3:10 PM Signed Called pt back relayed msg, back is very upset and wants you to review the blood work from when she went to speed reading teacher. Will have office fax over Allergies As of Date: 03/07/2022 Noted Allergy Reaction COMPAZINE (PROCHLORPERAZINE EDISY*01/02/2012 14 - Other: See Comments Comments: ' eyes rolled,neck drawn done Date Reviewed: 02/03/2022 Reviewed by: Vy Alvarez Ma - Fully Assessed Reason for Visit: Referral Request [124] Cmt: Endo Prescriptions as of 03/07/2022 - felodipine ER (PLENDIL) 10 mg 24 hr tablet Take 1 tablet by mouth once daily. - hydroCHLOROthiazide (HYDRODIURIL, ESIDRIX) 25 mg tablet Take 1 tablet by mouth once daily. - celecoxib (CELEBREX) 200 mg capsule Take 1 capsule by mouth once daily. Problem List As Of Date: 03/07/2022 (None) Encounter Status:Closed by VY ALVAREZ MA on 03/07/22 Normal [facility] CNOVon 02-03-2022 CNOV Office Visit (FSAM ) EMMANUELLE ABREU ([id number]) 1950 F EXC Date Time Provider Department 02/03/22 3:00 PM HOLDEN GUY JR [facility] During your visit today, we recorded the following information about you: Pulse Blood pressure Weight 62/minute 128/84 65 kg Holden Guy Jr, MD 02/05/2022 12:12 PM Signed Holden Guy Jr., M.D. [facility] [address] [place] [address] Date of Evaluation: 02/03/2022 Patient Name: Emmanuelle Abreu : 1950 Chief Complaint: Patient presents with: Blood Pressure Check Nursing Intake: There are no exam notes on file for this visit. Subjective Ms. Abreu is a 71 year old female who presents with the following complaint(s): HPI Pt continues on 10 mg felodipine ER daily and HCTZ 25 mg daily increased from 12.5 mg 10/26/21. Pt feels well and would like to continue present meds. Review of Systems Constitutional: Negative for fever and weight loss. HENT: Negative for congestion, ear pain and nosebleeds. Eyes: Negative for blurred vision and double vision. Respiratory: Negative for cough and shortness of breath. Cardiovascular: Negative for chest pain and palpitations. Gastrointestinal: Negative for abdominal pain and heartburn. Genitourinary: Negative for dysuria and frequency. Musculoskeletal: Negative for back pain, joint pain and myalgias. Skin: Negative for itching and rash. Neurological: Negative for dizziness and focal weakness. Psychiatric/Behavioral: Negative for depression. The patient is not nervous/anxious. PAST MEDICAL HISTORY Diagnosis Date DVT (deep venous thrombosis) (HCC) 1999 L LE DVT following bunion surgery Hypertension 2006 PAST SURGICAL HISTORY Procedure Laterality Date CORRECTION OF BUNION 01/1999 FAMILY HISTORY Problem Relation Age of Onset other (ALS) Mother age 73 ALS Cancer Father age 88 lung CA Ischemic Heart Disease Father HI age 80's in setting of chemotherapy Heart Maternal Aunt maternal aunt with atrial fibrillation Ischemic Heart Disease Maternal Uncle CAD HI age 60-70's? Social History Tobacco Use Smoking status: Never Smokeless tobacco: Never Substance Use Topics Alcohol use: Yes Comment: 1 sevring wine/daily Drug use: No Current Meds hydroCHLOROthiazide (HYDRODIURIL, ESIDRIX) 25 mg tablet TAKE 1 TABLET BY MOUTH EVERY DAY felodipine ER (PLENDIL) 10 mg 24 hr tablet olmesartan medoxomil (OLMESARTAN ORAL) Take 20 mg by mouth once daily. celecoxib (CELEBREX) 200 mg capsule Take 1 capsule by mouth once daily. (Patient not taking: Reported on 02/03/2022) carvedilol (COREG) 6.25 mg tablet Take 6.25 mg by mouth twice daily. Pt takes two tablets in the am and two tablets in the pm. (Patient not taking: Reported on 02/03/2022) I have confirmed and edited as necessary the chief complaint, medications, past medical, family and social histories obtained by others. Objective BP 128/84 Pulse 62 Wt 143 lb 6.4 oz (65.0kg) SpO2 100% Physical Exam Vitals and nursing note reviewed. HENT: Head: Normocephalic. Right Ear: External ear normal. Left Ear: External ear normal. Eyes: Pupils: Pupils are equal, round, and reactive to light. Cardiovascular: Rate and Rhythm: Normal rate and regular rhythm. Heart sounds: Normal heart sounds. Pulmonary: Effort: Pulmonary effort is normal. Breath sounds: Normal breath sounds. Abdominal: General: Bowel sounds are normal. Palpations: Abdomen is soft. There is no mass. Musculoskeletal: General: No tenderness. Normal range of motion. Cervical back: Normal range of motion and neck supple. Lymphadenopathy: Cervical: No cervical adenopathy. Skin: General: Skin is warm and dry. Neurological: Mental Status: She is alert and oriented to person, place, and time. Gait: Gait is intact. Deep Tendon Reflexes: Reflexes are normal and symmetric. Psychiatric: Mood and Affect: Mood and affect normal. ASSESSMENT/PLAN: 1. Hypertension, essential - ICD9: 401.9, ICD10: I10 (primary diagnosis) - good control - Continue current medication(s) - Recommended regular aerobic exercise. - Recommend home blood pressure monitoring, to bring results in on next visit - Goal of BP <130/80 - FELODIPINE ER 10 MG TABLET,EXTENDED RELEASE 24 HR - HYDROCHLOROTHIAZIDE 25 MG TABLET 2. Encounter for screening mammogram for malignant neoplasm of breast - ICD9: V76.12, ICD10: Z12.31 - Set up for mammogram, yearly mammogram recommended - Encouraged monthly BSE - Follow up for annual exam in one year. - JAYDEN SCREENING 3. Screening for osteoporosis - ICD9: V82.81, ICD10: Z13.820 4. Senile osteoporosis - ICD9: 733.01, ICD10: M81.0 - Reviewed the need for Calcium and Vitamin D supplements and weight bearin (more content not included)... Normal [facility] 25(OH)D3 [facility] 2021 25-hydroxyvitamin D3 [Mass/Vol] 107.0 ng/mL High 31.0-80.0 [facility] Comment on above: Order Comment: Speci men Type: BLOOD SPECIMEN Ordering Facility: [facility] Address: [place] [address] Result Comment: Clas sification of 25 [place] Vitamin D status: Deficiency/Insufficiency: < or = 30 ng/ml. Sufficiency/Optimal Levels: 31-80 ng/mL Toxicity: > 100 ng/mL. Test performed by chemiluminescent immunoassay. Performed By: #### 1 989-3 #### [facility] CLIA [id number] [address] [facility] [id number] Iron and Iron binding capaci ty panelon 01-30-2022 Iron [Mass/Vol] 72 ug/dL Normal 41-186 [facility] Comment on above: Order Comment: Speci men Type: BLOOD SPECIMEN Ordering Facility: [facility] Address: [address] [place] [address] Performed By: #### 5 0190-8, 3016-3 #### [facility] CLIA [id number] [address] Iron binding capacity [Mass/Vol] 301 ug/dL Normal 232-386 [facility] Comment on above: Order Comment: Speci men Type: BLOOD SPECIMEN Ordering Facility: [facility] Address: [address] [place] [address] Performed By: #### 5 0190-8, 3016-3 #### [facility] CLIA [id number] [address] Iron/TIBC [Molar ratio] 23.9 % Normal 15.0-57.0 [facility] Comment on above: Order Comment: Speci men Type: BLOOD SPECIMEN Ordering Facility: [facility] Address: [address] [place] [address] Performed By: #### 5 0190-8, 3016-3 #### [facility] CLIA [id number] [address] TSH SerPl-aCncon 01-30-2022 TSH Qn 3.180 m[IU]/L Normal 0.270-4.200 [facility] Comment on above: Order Comment: Speci men Type: BLOOD SPECIMEN Ordering Facility: [facility] Address: [address] [place] [address] Performed By: #### 5 0190-8, 3016-3 #### [facility] CLIA [id number] [address] OF [place] CNPNon 01-25-2022 CNPN Telephone (AGFSAM) EMMANUELLE ABREU ([id number]) 1950 [facility] Date Time Provider Department 01/25/22 HOLDEN GUY JR [facility] During your visit today, we recorded the following information about you: Vy Alvarez Ma 01/25/2022 11:52 AM Signed ----- Message from Tegan Dodson sent at 01/25/2022 11:06 AM EST ----- Regarding: Medicine /Holden Guy /hair falling out; requesting labs for thyroid--scheduled for 02/03 Patient has been identified by name and Date of (Y/N): y Patient: Emmanuelle Abreu Date of : 1950 Provider for this encounter: Holden Guy Jr, MD Reason for the call/escalation: hair falling out; requesting labs for thyroid--scheduled for 02/03 Was Patient Referred to [facility]/Seek Emergency Treatment (Y/N): no Did Patient Agree (Y/N): n/a Was An Attempt Made To Transfer The Patient To The Office (Y/N): no Were You Able To Reach Someone At The Office (Y/N): n/a If Yes - Patient Was Transferred To (Caregivers Name): n/a If No - Which [facility] Leadership Corporate Wellness Coordinator Did You Speak With Regarding This Patient: n/ Was an appointment scheduled (Y/N): no Reason patient was requesting visit (RFV/signs and symptoms/diagnosis) : hair falling out; requesting labs for thyroid--scheduled for 02/03 Person calling if other than patient: n/a Return call to if other than patient: n/a Best contact number: [phone] Thank you, Tegan Dodson January 25, 2022 11:07 AM Vy Alvarez Ma 01/25/2022 3:00 PM Signed Left msg that orders have been placed Allergies As of Date: 01/25/2022 Noted Allergy Reaction COMPAZINE (PROCHLORPERAZINE EDISY*01/02/2012 14 - Other: See Comments Comments: ' eyes rolled,neck drawn done Date Reviewed: 11/24/2021 Reviewed by: Dawson Santiago MD - Fully Assessed Reason for Visit: Orders [681] Primary Visit Diagnosis:Alopecia areata [L63.9] Other Visit Diagnosis:Vitamin D deficiency [E55.9] Order(s):TSH BLD [SQTSH] Order #: [id number] FUTURE VITAMIN D 25 HYDROXY [SQVITD] Order #: [id number] FUTURE IRON + TIBC [SQIRON] Order #: [id number] FUTURE Prescriptions as of 01/25/2022 - hydroCHLOROthiazide (HYDRODIURIL, ESIDRIX) 25 mg tablet TAKE 1 TABLET BY MOUTH EVERY DAY - felodipine ER (PLENDIL) 10 mg 24 hr tablet - celecoxib (CELEBREX) 200 mg capsule Take 1 capsule by mouth once daily. - carvedilol (COREG) 6.25 mg tablet Take 6.25 mg by mouth twice daily. Pt takes two tablets in the am and two tablets in the pm. - olmesartan medoxomil (OLMESARTAN ORAL) Take 20 mg by mouth once daily. Problem List As Of Date: 01/25/2022 (None) Encounter Status:Closed by HOLDEN GUY JR. on 01/25/22 [facility] [place] 01-09-2022 CURT Telephone ([facility]) EMMANUELLE ABREU ([id number]) 1950 F EXC Date Time Provider Department 01/09/22 [facility] During your visit today, we recorded the following information about you: Vy Alvarez Ma 01/09/2022 1:52 PM Signed ----- Message from Holden Guy Jr., MD sent at 12/27/2021 7:09 PM EDT ----- Reviewing old labs I note your Vit D level determined 10/20 was 118 --- this is too high and whatever supplement you are taking should be reduced by half, perhaps taking it only on odd calendar days, ie 1 - 3 - 5 etc. Chemistries, blood counts, and cholesterol levels were fine. MD Vy Travis Jr, Ma 01/09/2022 1:55 PM Signed Left detailed msg for pt to cut vit d supplement in half and too call with any questions or concerns Allergies As of Date: 01/09/2022 Noted Allergy Reaction COMPAZINE (PROCHLORPERAZINE EDISY*01/02/2012 14 - Other: See Comments Comments: ' eyes rolled,neck drawn done Date Reviewed: 11/24/2021 Reviewed by: Dawson Santiago MD - Fully Assessed Reason for Visit: Results [95] Prescriptions as of 01/09/2022 - felodipine ER (PLENDIL) 10 mg 24 hr tablet - hydroCHLOROthiazide (HYDRODIURIL, ESIDRIX) 12.5 mg capsule Take 12.5 mg by mouth once daily. - hydroCHLOROthiazide (HYDRODIURIL, ESIDRIX) 25 mg tablet Take 1 tablet by mouth once daily. - celecoxib (CELEBREX) 200 mg capsule Take 1 capsule by mouth once daily. - carvedilol (COREG) 6.25 mg tablet Take 6.25 mg by mouth twice daily. Pt takes two tablets in the am and two tablets in the pm. - olmesartan medoxomil (OLMESARTAN ORAL) Take 20 mg by mouth once daily. - hydroCHLOROthiazide (HYDRODIURIL, ESIDRIX) 12.5 mg tablet Take 12.5 mg by mouth once daily. Problem List As Of Date: 01/09/2022 (None) Encounter Status:Closed by VY ALVAREZ MA on 01/09/22 [facility] CNOVon 11-24-2021 CNOV Office Visit (AGHWW1 ) EMMANUELLE ABREU ([id number]) 1950 EXC Date Time Provider Department 11/24/21 11:00 AM DAWSON SANTIAGO AGHWW1 During your visit today, we recorded the following information about you: Respiration Weight Height 20/minute 65.8 kg 1.664 m Cristian Wild LPN 11/24/2021 11:59 AM Signed REVIEW OF SYSTEMS: GENERAL: Well developed, well nourished. No acute distress PAIN: Pain yes CARDIOVASCULAR: Negative for chest pain, leg swelling and palpations. MSK: Negative for joint swelling SKIN: Negative for lesions, rash, itching, metal sensitivity NEURO: Negative for seizure, trauma, numbness/tingling of extremities. ENDOCRINE: Negative for diabetic associated symptoms HEMATOLOGY: Clots hx of Dawson Santiago MD 11/24/2021 11:59 AM Signed Patient ID: Emmanuelle Abreu is a 70 year old female. CC: Consultation requested by Hodlen Guy Jr, MD for evaluation of: Patient presents with: Left Hip - New, Pain HPI: Emmanuelle Abreu is a 70 year old female who presents with a history of activity related right hip pain. The patient denies specific injury or acute precipitating event. The pain is described as dull aching and sharp shooting pain and is present in the lateral thigh regions of the hip. The patient Does not require any ambulatory aids. The patient Does not walk with a limp. The patient Does have difficulty ascending and descending stairs as well as getting out of a chair. The pain is to the point where it is adversely affecting activities of daily living. Previous treatment has consisted of activity modification, nsaids celebrex The patient is referred for orthopedic evaluation and management. Pain Assessment intermittent The following portions of the patient's history were reviewed and updated as appropriate: allergies, current medications, past family history, past medical history, past social history, past surgical history and problem list. PAST MEDICAL HISTORY Diagnosis Date DVT (deep venous thrombosis) (HCC) 1999 L LE DVT following bunion surgery Hypertension 2006 PAST SURGICAL HISTORY Procedure Laterality Date CORRECTION OF BUNION 01/1999 ROS FAMILY HISTORY Problem Relation Age of Onset other (ALS) Mother age 73 ALS Cancer Father age 88 lung CA Ischemic Heart Disease Father HI age 80's in setting of chemotherapy Heart Maternal Aunt maternal aunt with atrial fibrillation Ischemic Heart Disease Maternal Uncle CAD HI age 60-70's? Social History Tobacco Use Smoking status: Never Smokeless tobacco: Never Substance Use Topics Alcohol use: Yes Comment: 1 sevring wine/daily Drug use: No Current Outpatient Medications Medication Sig Dispense Refill felodipine ER (PLENDIL) 10 mg 24 hr tablet hydroCHLOROthiazide (HYDRODIURIL, ESIDRIX) 12.5 mg capsule Take 12.5 mg by mouth once daily. hydroCHLOROthiazide (HYDRODIURIL, ESIDRIX) 25 mg tablet Take 1 tablet by mouth once daily. 90 tablet 0 celecoxib (CELEBREX) 200 mg capsule Take 1 capsule by mouth once daily. 60 capsule 1 hydroCHLOROthiazide (HYDRODIURIL, ESIDRIX) 12.5 mg tablet Take 12.5 mg by mouth once daily. carvedilol (COREG) 6.25 mg tablet Take 6.25 mg by mouth twice daily. Pt takes two tablets in the am and two tablets in the pm. (Patient not taking: No sig reported) olmesartan medoxomil (OLMESARTAN ORAL) Take 20 mg by mouth once daily. (Patient not taking: No sig reported) No current facility-administered medications for this visit. ALLERGIES Allergen Reactions Compazine [Prochlor* Other: See Comments ' eyes rolled,neck drawn done There is no problem list on file for this patient. Objective: On physical examination, the patient is a well appearing female in no respiratory distress. The patient is awake, alert and oriented to person, place and time. Body mass index is 23.76 kg/m?. Respirations are 18 and comfortable. Examination of the patient?s gait finds it to be nonantalgic, steady and well balanced. Inspection of the bilateral lower extremities does not demonstrate color, temperature or trophic changes. There is satisfactory alignment and no asymmetry. The patient is able to straight leg raise bilaterallyWithout pain. Leg lengths are equal. Examination of the left hip shows flexion of 110 degrees, internal rotation of 15 degrees and external rotation is 15 degrees. The skin is noted to be intact. There is no lymphadenopathy. There is tenderness over the trochanteric bursal region to palpation. The left lower extremity is otherwise neurovascularly intact. Examination of the right hip shows flexion of 110 degrees, internal rotation of 15 degrees and external rotation is 15 degrees. The skin is noted to be intact. There is no lymphadenopathy. There is not tenderness over the trochanteric bursal region to palpation. The right lower extremi (more content not included)... Normal [facility] CNOVon 10-26-2021 CNOV Office Visit (AGFSAM ) EMMANUELLE ABREU ([id number]) 1950 F EXC Date Time Provider Department 10/26/21 1:20 PM HOLDEN GUY JR [facility] During your visit today, we recorded the following information about you: Pulse Blood pressure Height 64/minute 134/87 1.664 m Holden Guy Jr, MD 10/27/2021 6:41 AM Signed Holden Guy Jr., M.D. [facility] [address] [place] [address] Date of Evaluation: 10/26/2021 Patient Name: Emmanuelle Aberu : 1950 Chief Complaint: Patient presents with: Yearly Exam: Physical Nursing Intake: There are no exam notes on file for this visit. Subjective Ms. Abreu is a 70 year old female who presents with the following complaint(s): HPI Pt is here to establish. She has a long history of hypertension, currently managed with 12.5 mg hctz daily having stopped coreg twice daily and olmesartan once daily. She does take 10 mg felodipine ER. She has an easily upset stomach and takes tylenol for left hip pain without much benefit. Wonders about seeing an orthopedist. Review of Systems Constitutional: Negative for fever and weight loss. HENT: Negative for congestion, ear pain and nosebleeds. Eyes: Negative for blurred vision and double vision. Respiratory: Negative for cough and shortness of breath. Cardiovascular: Negative for chest pain and palpitations. Gastrointestinal: Negative for abdominal pain and heartburn. Genitourinary: Negative for dysuria and frequency. Musculoskeletal: Positive for joint pain. Negative for back pain and myalgias. Skin: Negative for itching and rash. Neurological: Negative for dizziness and focal weakness. Psychiatric/Behavioral: Negative for depression. The patient is not nervous/anxious. PAST MEDICAL HISTORY Diagnosis Date DVT (deep venous thrombosis) (HCC) 1999 L LE DVT following bunion surgery Hypertension 2006 PAST SURGICAL HISTORY Procedure Laterality Date CORRECTION OF BUNION 01/1999 FAMILY HISTORY Problem Relation Age of Onset other (ALS) Mother age 73 ALS Cancer Father age 88 lung CA Ischemic Heart Disease Father HI age 80's in setting of chemotherapy Heart Maternal Aunt maternal aunt with atrial fibrillation Ischemic Heart Disease Maternal Uncle CAD HI age 60-70's? Social History Tobacco Use Smoking status: Never Smokeless tobacco: Never Substance Use Topics Alcohol use: Yes Comment: 1 sevring wine/daily Drug use: No Current Meds felodipine ER (PLENDIL) 10 mg 24 hr tablet hydroCHLOROthiazide (HYDRODIURIL, ESIDRIX) 12.5 mg capsule Take 12.5 mg by mouth once daily. hydroCHLOROthiazide (HYDRODIURIL, ESIDRIX) 25 mg tablet Take 1 tablet by mouth once daily. celecoxib (CELEBREX) 200 mg capsule Take 1 capsule by mouth once daily. carvedilol (COREG) 6.25 mg tablet Take 6.25 mg by mouth twice daily. Pt takes two tablets in the am and two tablets in the pm. (Patient not taking: Reported on 10/26/2021) olmesartan medoxomil (OLMESARTAN ORAL) Take 20 mg by mouth once daily. (Patient not taking: Reported on 10/26/2021) hydroCHLOROthiazide (HYDRODIURIL, ESIDRIX) 12.5 mg tablet Take 12.5 mg by mouth once daily. I have confirmed and edited as necessary the chief complaint, medications, past medical, family and social histories obtained by others. Objective BP 134/87 Pulse 64 Ht 5' 5.5 (1.66m) Wt 0 lb (0.0kg) SpO2 98% Physical Exam Vitals and nursing note reviewed. HENT: Head: Normocephalic. Right Ear: External ear normal. Left Ear: External ear normal. Eyes: Pupils: Pupils are equal, round, and reactive to light. Cardiovascular: Rate and Rhythm: Normal rate and regular rhythm. Heart sounds: Normal heart sounds. Pulmonary: Effort: Pulmonary effort is normal. Breath sounds: Normal breath sounds. Abdominal: General: Bowel sounds are normal. Palpations: Abdomen is soft. There is no mass. Musculoskeletal: General: No tenderness. Normal range of motion. Cervical back: Normal range of motion and neck supple. Lymphadenopathy: Cervical: No cervical adenopathy. Skin: General: Skin is warm and dry. Neurological: Mental Status: She is alert and oriented to person, place, and time. Gait: Gait is intact. Deep Tendon Reflexes: Reflexes are normal and symmetric. Psychiatric: Mood and Affect: Mood and affect normal. ASSESSMENT/PLAN: 1. Hypertension, essential - ICD9: 401.9, ICD10: I10 (primary diagnosis) - suboptimal control - Increase hctz to 25 mg daily - Recommended regular aerobic exercise. - Recommend home blood pressure monitoring, to bring results in on next visit - Goal of BP <130/80 - HYDROCHLOROTHIAZIDE 25 MG TABLET 2. Hip pain - ICD9: 719.45, ICD10: M25.559 - CONSULT TO ORTHOPAEDICS - CELECOXIB 2 (more content not included)... Normal [facility] [place] 10-26-2021 CNPN Telephone ([facility]) EMMANUELLE ABREU ([id number]) 1950 F EXC Date Time Provider Department 10/26/21 HOLDEN GUY JR [facility] During your visit today, we recorded the following information about you: Zoë Donovan 10/26/2021 2:58 PM Signed ORTHO Referral place through the [facility] on October 26, 2021. #[id number] Preferred Provider Zoë Donovan 11/04/2021 2:01 PM Signed Allergies As of Date: 10/26/2021 Noted Allergy Reaction COMPAZINE (PROCHLORPERAZINE EDISY*01/02/2012 14 - Other: See Comments Comments: ' eyes rolled,neck drawn done Date Reviewed: 04/10/2018 Reviewed by: Ronit Huertas - Fully Assessed Reason for Visit: Referral Information [6976] Cmt: ORTHOPEDICS Prescriptions as of 11/04/2021 - felodipine ER (PLENDIL) 10 mg 24 hr tablet - hydroCHLOROthiazide (HYDRODIURIL, ESIDRIX) 12.5 mg capsule Take 12.5 mg by mouth once daily. - hydroCHLOROthiazide (HYDRODIURIL, ESIDRIX) 25 mg tablet Take 1 tablet by mouth once daily. - celecoxib (CELEBREX) 200 mg capsule Take 1 capsule by mouth once daily. - carvedilol (COREG) 6.25 mg tablet Take 6.25 mg by mouth twice daily. Pt takes two tablets in the am and two tablets in the pm. - olmesartan medoxomil (OLMESARTAN ORAL) Take 20 mg by mouth once daily. - hydroCHLOROthiazide (HYDRODIURIL, ESIDRIX) 12.5 mg tablet Take 12.5 mg by mouth once daily. Problem List As Of Date: 10/26/2021 (None) Encounter Status:Closed by ZOË DONOVAN on 10/26/21 Normal [facility] 25(OH)D3 SerPl-yadielon 2021 25-hydroxyvitamin D3 [Mass/Vol] 118.0 ng/mL Normal >=30.0 [facility] Comment on above: Order Comment: Speci men Type: BLOOD SPECIMEN Ordering Facility: [facility] Address: [address] [place] [address] Result Comment: Clas sification of 25 [place] Vitamin D status: Deficiency: <= 20.0 ng/ml. Insufficiency: 21.0-29.0 ng/ml. Sufficiency: >= 30.0 ng/ml. Performed By: #### 1 989-3 #### [facility] CLIA [id number] [address] [place] [address] [place] CBC panel Auto (Bld)on 10-20 Erythrocyte distribution width (RBC) [Ratio] 12.3 % Normal 11.5-15.0 [facility] Comment on above: Order Comment: Speci men Type: BLOOD SPECIMENOrdering Facility: [facility] Address: [address] [place] [address] Performed By: #### 5 8410-2 ####[facility]IA [id number] [address] Hematocrit (Bld) [Volume fraction] 36.9 % Normal 36.0-46.0 [facility] Comment on above: Order Comment: Speci men Type: BLOOD SPECIMENOrdering Facility: [facility] Address: [address] [place] [address] Performed By: #### 5 8410-2 ####[facility]ORYCLIA [id number] [address] [facility] Hemoglobin (Bld) [Mass/Vol] 12.4 g/dL Normal 11.5-15.5 [facility] Comment on above: Order Comment: Speci men Type: BLOOD SPECIMENOrdering Facility: [facility] Address: [address] [place] [address] Performed By: #### 5 8410-2 ####[facility]ORYCLIA [id number] [address] [place] MCH (RBC) [Entitic mass] 32.3 pg Normal 26.0-34.0 [facility] Comment on above: Order Comment: Speci men Type: BLOOD SPECIMENOrdering Facility: [facility] Address: [address] [place] [address] Performed By: #### 5 8410-2 ####[facility]ORYCLIA [id number] [address] MCHC (RBC) [Mass/Vol] 33.6 g/dL Normal 30.5-36.0 [facility] Comment on above: Order Comment: Speci men Type: BLOOD SPECIMENOrdering Facility: [facility] Address: [address] [place] [address] Performed By: #### 5 8410-2 ####[facility]ORYCLIA [id number] [address] MCV (RBC) [Entitic vol] 96.1 fL Normal 80.0-100.0 [facility] Comment on above: Order Comment: Speci men Type: BLOOD SPECIMENOrdering Facility: [facility] Address: [address] [place] [address] Performed By: #### 5 8410-2 ####[facility]ORYCLIA [id number] [address] Nucleated RBC (Bld) [#/Vol] 10*3/uL Normal <0.01 [facility] Comment on above: Order Comment: Speci men Type: BLOOD SPECIMENOrdering Facility: [facility] Address: [address] [place] [address] Performed By: #### 5 8410-2 ####[facility]ORYCLIA [id number] [address] Platelet mean volume (Bld) [Entitic vol] 9.6 fL Normal 9.0-12.7 [facility] Comment on above: Order Comment: Speci men Type: BLOOD SPECIMENOrdering Facility: [facility] Address: [address] [place] [address] Performed By: #### 5 8410-2 ####[facility]ORYCLIA [id number] [address] Platelets (Bld) [#/Vol] 262 10*3/uL Normal 150-400 [facility] Comment on above: Order Comment: Speci men Type: BLOOD SPECIMENOrdering Facility: [facility] Address: [address] [place] [address] Performed By: #### 5 8410-2 ####[facility]ORYCLIA [id number] [address] [place] RBC (Bld) [#/Vol] 3.84 10*6/uL Low 3.90-5.20 [facility] Comment on above: Order Comment: Speci men Type: BLOOD SPECIMENOrdering Facility: [facility] Address: [address] [place] [address] Performed By: #### 5 8410-2 ####[facility]ORYCLIA [id number] [address] WBC (Bld) [#/Vol] 5.89 10*3/uL Normal 3.70-11.00 [facility] Comment on above: Order Comment: Speci men Type: BLOOD SPECIMENOrdering Facility: [facility] Address: [address] [place] [address] Performed By: #### 5 8410-2 ####[facility]ORYCLIA [id number] [address] Comprehensive metabolic 2000 panelon 10-20-2021 Albumin [Mass/Vol] 4.1 g/dL Normal 3.9-4.9 [facility] Comment on above: Order Comment: Speci men Type: BLOOD SPECIMENOrdering Facility: [facility] Address: [address] [place] [address] Performed By: #### 2 4323-8, 46166-5, 3016-3 ####[facility]ORYCLIA [id number] [address] STATES OF [facility] ALP [Catalytic activity/Vol] 53 U/L Normal 34-123 [facility] Comment on above: Order Comment: Speci men Type: BLOOD SPECIMENOrdering Facility: [facility] Address: [address] [place] [address] Performed By: #### 2 4323-8, 99450-3, 3016-3 ####[facility]ORYCLIA [id number] [address] ALT With P-5'-P [Catalytic activity/Vol] 16 U/L Normal 7-38 [facility] Comment on above: Order Comment: Speci men Type: BLOOD SPECIMENOrdering Facility: [facility] Address: [address] [place], [place] [address] Performed By: #### 2 4323-8, 51669-3, 6-3 ####[facility]ORYCLIA [id number] [address] STATES [facility] Anion gap [Moles/Vol] 8 mmol/L Low 9-18 [facility] Comment on above: Order Comment: Speci men Type: BLOOD SPECIMENOrdering Facility: [facility] Address: [address] [place] [address] Performed By: #### 2 4323-8, 30363-7, 3015-3 ####[facility]ORYCLIA [id number] [address] OF [facility] AST With P-5'-P [Catalytic activity/Vol] 28 U/L Normal 13-35 [facility] Comment on above: Order Comment: Speci men Type: BLOOD SPECIMENOrdering Facility: [facility] Address: [address] [place] [address] Performed By: #### 2 4323-8, 09071-8, 3015-3 ####[facility]ORYCLIA [id number] [address] [place] Bilirubin [Mass/Vol] 0.3 mg/dL Normal 0.2-1.3 [facility] Comment on above: Order Comment: Speci men Type: BLOOD SPECIMENOrdering Facility: [facility] Address: [address] [place] [address] Performed By: #### 2 4323-8, 00672-7, 3015-3 ####[facility]ORYCLIA [id number] [address] [place] [facility] Calcium [Mass/Vol] 9.3 mg/dL Normal 8.5-10.2 [facility] Comment on above: Order Comment: Speci men Type: BLOOD SPECIMENOrdering Facility: [facility] Address: [address] [place] [address] Performed By: #### 2 4323-8, 68518-8, 6-3 ####[facility]ATORYCLIA [id number] [place] [address] [place] Chloride [Moles/Vol] 99 mmol/L Normal 97-105 [facility] Comment on above: Order Comment: Speci men Type: BLOOD SPECIMENOrdering Facility: [facility] Address: [address] [place] [address] Performed By: #### 2 4323-8, 73200-0, 3016-3 ####[facility] [id number] [address] [place] CO2 [Moles/Vol] 28 mmol/L Normal 22-30 [facility] Comment on above: Order Comment: Speci men Type: BLOOD SPECIMENOrdering Facility: [facility] Address: [address] [place] [address] Performed By: #### 2 4323-8, 28810-0, 3016-3 ####[facility] [id number] [address] Creatinine [Mass/Vol] 0.80 mg/dL Normal 0.58-0.96 [facility] Comment on above: Order Comment: Speci men Type: BLOOD SPECIMENOrdering Facility: [facility] Address: [address] [place] [address] Performed By: #### 2 4323-8, 72870-1, 3016-3 ####[facility] BENDIA [id number] [address] ESTIMATED GLOMERULAR FILTRATION RATE 79 mL/min/1.73m??? Normal >=60 [facility] Comment on above: Order Comment: Speci men Type: BLOOD SPECIMENOrdering Facility: [facility] Address: [address] [place] [address] Result Comment: Mami mated Glomerular Filtration Rate (eGFR) is calculated using the 2020 CKD-EPI creatinine equation. This equation utilizes serum creatinine, sex, and age as parameters. The creatinine assay has traceable calibration to isotope dilution-mass spectrometry. Refer to KDIGO guidelines for clinical interpretation. In patients with unstable renal function, e.g. those with acute kidney injury, the eGFR may not accurately reflect actual GFR. Performed By: #### 2 4323-8, 54943-9, 3015-3 ####[facility]ORYCLIA [id number] [place] [address] [place] Glucose [Mass/Vol] 90 mg/dL Normal 74-99 [facility] Comment on above: Order Comment: Rubi gallegos Type: BLOOD SPECIMENOrdering Facility: [facility] Address: [address] [place] [address] Result Comment: The [place] [employer] (ADA) provides guidance for cutoff values for fasting glucose and random glucose. The ADA defines fasting as no caloric intake for at least 8 hours. Fasting plasma glucose results between 100 to 125 mg/dL indicate increased risk for diabetes (prediabetes). Fasting plasma glucose results greater than or equal to 126 mg/dL meet the criteria for diagnosis of diabetes. In the absence of unequivocal hyperglycemia, results should be confirmed by repeat testing. In a patient with classic symptoms of hyperglycemia or hyperglycemic crisis, random plasma glucose results greater than or equal to 200 mg/dL meet the criteria for diagnosis of diabetes. Reference: Standards of Medical Care in Diabetes 2016, [place] Diabetes Association. Diabetes Care. 2016.39(Suppl 1). Performed By: #### 2 4323-8, 29368-3, 3 ####[facility] LABORATORYCLIA [id number] [place] [address] [place] Potassium [Moles/Vol] 4.0 mmol/L Normal 3.7-5.1 [facility] Comment on above: Order Comment: Rubi gallegos Type: BLOOD SPECIMENOrdering Facility: [facility] Address: [address] [id number] Performed By: #### 2 4323-8, 39093-0, 3 ####[facility] LABORATORYCLIA [id number] [place] [address] [place] Protein [Mass/Vol] 6.9 g/dL Normal 6.3-8.0 [facility] Comment on above: Order Comment: Rubi gallegos Type: BLOOD SPECIMENOrdering Facility: [facility] Address: [address] [place], [place] [id number] Performed By: #### 2 4323-8, 88101-1, 6-3 ####[facility] LABORATORYCLIA [id number] [address] [place] Sodium [Moles/Vol] 135 mmol/L Low 136-144 [facility] Comment on above: Order Comment: Speci men Type: BLOOD SPECIMENOrdering Facility: [facility] Address: [address] [place] [address] Performed By: #### 2 4323-8, 73662-5, 6-3 ####[facility] LABORATORYCLIA [id number] [address] [place] Urea nitrogen [Mass/Vol] 14 mg/dL Normal 7-21 [facility] Comment on above: Order Comment: Speci men Type: BLOOD SPECIMENOrdering Facility: [facility] Address: [address] [place] [address] Performed By: #### 2 4323-8, 59861-3, 6-3 ####[facility] LABORATORYCLIA [id number] [address] OF [facility] Lipid 1996 panelon 2 Cholesterol [Mass/Vol] 194 mg/dL Normal <200 [facility] Comment on above: Order Comment: Speci men Type: BLOOD SPECIMENOrdering Facility: [facility] Address: [address] [place] [address] Result Comment: <200 mg/dL, Desirable 200-239 mg/dL, Borderline high >239 mg/dL, High Performed By: #### 2 4323-8, 74111-7, 6-3 ####[facility] LABORATORYCLIA [id number] [address] [place] Cholesterol in HDL [Mass/Vol] 83 mg/dL Normal >39 [facility] Comment on above: Order Comment: Speci men Type: BLOOD SPECIMENOrdering Facility: [facility] Address: [address] [place] [address] Result Comment: 40-5 9 mg/dL, Acceptable >59 mg/dL, High: Negative risk factor for coronary heart disease <40 mg/dL, Low: Positive risk factor for coronary heart disease Performed By: #### 2 4323-8, 28463-1, 3015-3 ####[facility] LABORATORYCLIA [id number] [place], [place] [address] [place] [address] [place] Cholesterol in LDL [Mass/Vol] 102 mg/dL High <100 [facility] Comment on above: Order Comment: Speci men Type: BLOOD SPECIMENOrdering Facility: [facility] Address: [address] [place] [address] Result Comment: <100 mg/dL, Optimal 100-129 mg/dL, Near optimal/above optimal 130-159 mg/dL, Borderline high 160-189 mg/dL, High >189 mg/dL, Very high Secondary prevention optimal LDL Cholesterol levels are recommended to be < 70 mg/dL Performed By: #### 2 4323-8, 55653-4, 3015-04 ####[facility] [id number] [address] Cholesterol in LDL/Cholesterol in HDL [Mass ratio] 1.23 {ratio} Normal <2.54 [facility] Comment on above: Order Comment: Speci men Type: BLOOD SPECIMENOrdering Facility: [facility] Address: [address] [place] [address] Result Comment: Refe rence: 1. National Cholesterol Education Program ATP III Guideline At-A-Glance Quick Desk Reference: National Heart, Lung, and Blood [place]. National Institutes of Health. 2001: NIH Publication No. 01-3305. 2. An International Atherosclerosis Society position paper: global recommendations for the management of dyslipidemia: executive summary, Atherosclerosis. 2014: 232(2):410-413. Performed By: #### 2 4323-8, 91390-5, 3015-3 ####[facility] LABORATORYCLIA [id number] [place], [place] [address] [place] [address] [place] Cholesterol in VLDL [Mass/Vol] 9 mg/dL Normal <30 [facility] Comment on above: Order Comment: Speci men Type: BLOOD SPECIMENOrdering Facility: [facility] Address: [address] [place] [address] Performed By: #### 2 4323-8, 28728-1, 3 ####[facility]ORATORYCLIA [id number] [address] Cholesterol non HDL [Mass/Vol] 111 mg/dL Normal <130 [facility] Comment on above: Order Comment: Speci men Type: BLOOD SPECIMENOrdering Facility: [facility] Address: [address] [place] [address] Result Comment: <130 mg/dL, Optimal 130-159 mg/dL, Near optimal/above optimal 160-189 mg/dL, Borderline high 190-219 mg/dL, High >219 mg/dL, Very high Secondary prevention optimal non HDL Cholesterol levels are recommended to be <100 mg/dL Performed By: #### 2 4323-8, 06606-3, 3015-04 ####[facility]ORATORYCLIA [id number] [address] Cholesterol.total/ Cholesterol in HDL [Mass ratio] 2.34 {ratio} Normal <5.10 [facility] Comment on above: Order Comment: Speci men Type: BLOOD SPECIMENOrdering Facility: [facility] Address: [address] [place] [address] Performed By: #### 2 4323-8, 51729-8, 3015-04 ####[facility]ORATORYCLIA [id number] [address] FASTING TIME 12 hrs Normal [facility] Comment on above: Order Comment: Speci men Type: BLOOD SPECIMENOrdering Facility: [facility] Address: [address] [place] [address] Performed By: #### 2 4323-8, 35161-2, 3015-04 ####[facility] LABORATORYCLIA [id number] [address] [place] Triglyceride [Mass/Vol] 46 mg/dL Normal <150 [facility] Comment on above: Order Comment: Rubi gallegos Type: BLOOD SPECIMENOrdering Facility: [facility] Address: [address] [place] [phone] Result Comment: <150 mg/dL, Normal 150-199 mg/dL, Borderline high 200-499 mg/dL, High >499 mg/dL, Very high Performed By: #### 2 4323-8, 79008-3, 3016-3 ####[facility] LABORATORYCLIA [id number] [place] [address] [facility] TSH SerPl-aCncon 10-20-2021 TSH Qn 2.360 m[IU]/L Normal 0.270-4.200 [facility] Comment on above: Order Comment: Rubi gallegos Type: BLOOD SPECIMENOrdering Facility: [facility] Address: [address] [place] [phone] Performed By: #### 2 4323-8, 02176-7, 3016-3 ####[facility] LABORATORYCLIA [id number] [address] CNPNon 10-19-2021 CNPN Telephone (AGS) EMMANUELLE ABREU ([id number]) 1950 F [facility] Date Time Provider Department 10/19/21 HOLDEN GUY JR AGSAM During your visit today, we recorded the following information about you: Zoë Megenhardt 10/19/2021 2:23 PM Signed Patient's appointment for today was moved to 10-26. She would like to have her blood work done prior to her appointment. Please advise Zoë Megenhardt Zoë Megenhardt 10/19/2021 3:50 PM Signed Patient notified Zoë Megenhardt Allergies As of Date: 10/19/2021 Noted Allergy Reaction COMPAZINE (PROCHLORPERAZINE EDISY*01/02/2012 14 - Other: See Comments Comments: ' eyes rolled,neck drawn done Date Reviewed: 04/10/2018 Reviewed by: Ronit Huertas - Fully Assessed Reason for Visit: Patient Question [1477] Primary Visit Diagnosis:Hypertension, unspecified type [I10] Other Visit Diagnoses:Vitamin D deficiency [E55.9] Screening for thyroid disorder [Z13.29] Order(s):CBC [SQCBC] Order #: [id number] FUTURE COMP METABOLIC PANEL [SQCMP] Order #: [id number] FUTURE LIPID PANEL BASIC [SQLIPB] Order #: [id number] FUTURE VITAMIN D 25 HYDROXY [SQVITD] Order #: [id number] FUTURE TSH BLD [SQTSH] Order #: [id number] FUTURE Prescriptions as of 10/19/2021 - carvedilol (COREG) 6.25 mg tablet Take 6.25 mg by mouth twice daily. Pt takes two tablets in the am and two tablets in the pm. - olmesartan medoxomil (OLMESARTAN ORAL) Take 20 mg by mouth once daily. - hydroCHLOROthiazide (HYDRODIURIL, ESIDRIX) 12.5 mg tablet Take 12.5 mg by mouth once daily. Problem List As Of Date: 10/19/2021 (None) Encounter Status:Closed by HOLDEN GUY JR. on 10/19/21 [facility] CNCOon 04-10-2018 [facility] Text Dear Emmanuelle Abreu: How to activate your [facility] [employer] Account 1. Visit the [employer] Signup page at [email or web address] 2. Identify yourself using your one-time use activation code: [email or web address] 3. Follow the on-screen prompts to choose your own secure username and password The following information will be necessary to access your account for the first time: Information needed for sign-up: Your custom activation code used one-time only for the initial account set-up. Your date of The last 4 digits of your social security number What to do next: Fill in the requested information on the Identify Yourself Form at [email or web address] , click Next. Create your login and password, choose a [employer] ID and password that will be easy for you to use, but impossible for anyone else to guess. Pick a security question that will assist you in the event you forget your password the next time you log-on. If you have difficulty activating your account, please call our [employer] helpline at [phone] or toll free at . We hope you enjoy using [employer]! Kindest Regards, [facility] [employer] Team Normal [facility] ECG COMPLETEon 04-10-2018 ECG COMPLETE NAME : EMMANUELLE ABREU PID : [id number] : 1950 Gender : Female Race : ORD : [id number] Procedure Date : Apr 10 2018 08:15:15 Edit Date : Apr 12 2018 14:47:11 Diagnosis:SINUS BRADYCARDIA OTHERWISE NORMAL ECG Confirmed by ERUM SILVESTRE M.D. ([id number]) on 04/12/2018 2:44:50 PM Ventricular Rate : 53 BPM Atrial Rate : 53 BPM P-R Interval : 192 ms QRS Duration : 94 ms Q-T Interval : 464 ms QTC Calculation(Bezet) : 435 ms P [place] : 59 degrees R [place] : 2 degrees T [place] : 46 degrees Test Reason : Location : 314 : J14 J1-4 Overread By : ERUM SILVESTRE M.D. Edited By : ERUM SILVESTRE M.D. Referred By : DAMIEN SARAH Acquired by : Rachelle Bagley [facility] Vital Signs Date Time Vital Sign Value Performing Clinician Facility 10-09-2022 16:01-0400 Body height 167.64 cm [facility] Work Phone: 10-09-2022 16:01-0400 Body mass index (BMI) [Ratio] 22.98 kg/m2 [facility]; [facility] Work Phone: 10-09-2022 16:01-0400 Body surface area Derived from formula 1.73 m2 [facility]; [facility] Work Phone: 10-09-2022 16:01-0400 Body temperature 96 [degF] [facility] Work Phone: 10-09-2022 16:01-0400 Body weight 64.58 kg [facility]; [facility] Work Phone: 10-09-2022 16:01-0400 Diastolic blood pressure 72 mm[Hg] [facility]; [facility] Work Phone: Comment on above: Patient Position: Sitting; Cuff Location : Left Arm; Cuff Size: Standard 10-09-2022 16:01-0400 Heart rate 82 /min [facility]; [facility] Work Phone: Comment on above: Pattern: Regular 10-09-2022 16:01-0400 Respiratory rate 16 /min [facility]; [facility] Work Phone: Comment on above: Pattern: Unlabored 10-09-2022 16:01-0400 SaO2% (BldA) [Mass fraction] 98 % [facility]; [facility] Work Phone: Comment on above: Room air 10-09-2022 16:01-0400 Systolic blood pressure 110 mm[Hg] [facility]; [facility] Work Phone: Comment on above: Patient Position: Sitting; Cuff Location : Left Arm; Cuff Size: Standard 07-25-2022 08:23-0400 Body height 167.64 cm Chelsie Guevara MA [facility] Work Phone: 07-25-2022 08:23-0400 Body mass index (BMI) [Ratio] 23.42 kg/m2 Chelsie Guevara MA [facility]; [facility] Work Phone: 07-25-2022 08:23-0400 Body surface area Derived from formula 1.75 m2 Chelsie Guevara MA [facility]; [facility] Work Phone: 07-25-2022 08:23-0400 Body temperature 96.3 [degF] Chelsie Guevara MA [facility]; [facility] Work Phone: 07-25-2022 08:23-0400 Body weight 65.83 kg Chelsie Guevara MA [facility]; [facility] Work Phone: 07-25-2022 08:23-0400 Diastolic blood pressure 80 mm[Hg] Chelsie Guevara MA [facility]; [facility] Work Phone: Comment on above: Patient Position: Sitting; Cuff Location : Left Arm; Cuff Size: Standard 07-25-2022 08:23-0400 Heart rate 64 /min Chelsie Guevara MA [facility]; [facility] Work Phone: Comment on above: Pattern: Regular 07-25-2022 08:23-0400 SaO2% (BldA) [Mass fraction] 99 % Chelsie Guevara MA [facility]; [facility] Work Phone: Comment on above: Room air 07-25-2022 08:23-0400 Systolic blood pressure 110 mm[Hg] Chelsie Guevara MA [facility]; [facility] Work Phone: Comment on above: Patient Position: Sitting; Cuff Location : Left Arm; Cuff Size: Standard 04-20-2022 11:25-0500 Body height 167.64 cm Marcella Aguilar MD Work Phone: [facility]; [facility] Work Phone: 04-20-2022 11:25-0500 Body mass index (BMI) [Ratio] 23.42 kg/m2 Marcella Aguilar MD Work Phone: [facility]; [facility] Work Phone: 04-20-2022 11:25-0500 Body surface area Derived from formula 1.75 m2 Marcella Aguilar MD Work Phone: [facility]; [facility] Work Phone: 04-20-2022 11:25-0500 Body temperature 98.1 [degF] Marcella Aguilar MD Work Phone: [facility]; [facility] Work Phone: 04-20-2022 11:25-0500 Body weight 65.83 kg Marcella Aguilar MD Work Phone: [facility]; [facility] Work Phone: 04-20-2022 11:25-0500 Diastolic blood pressure 92 mm[Hg] Marcella Aguilar MD Work Phone: [facility]; [facility] Work Phone: Comment on above: Patient Position: Sitting; Cuff Location : Left Arm; Cuff Size: Standard 04-20-2022 11:25-0500 Heart rate 70 /min Marcella Aguilar MD Work Phone: [facility]; [facility] Work Phone: Comment on above: Pattern: Regular 04-20-2022 11:25-0500 Respiratory rate 16 /min Marcella Aguilar MD Work Phone: [facility]; [facility] Work Phone: Comment on above: Pattern: Unlabored 04-20-2022 11:25-0500 SaO2% (BldA) [Mass fraction] 97 % Marcella Aguilar MD Work Phone: [facility]; [facility] Work Phone: Comment on above: Room air 04-20-2022 11:25-0500 Systolic blood pressure 148 mm[Hg] Marcella Aguilar MD Work Phone: [facility]; [facility] Work Phone: Comment on above: Patient Position: Sitting; Cuff Location : Left Arm; Cuff Size: Standard 02-03-2022 14:39-0500 Body weight 65.05 kg Holden Guy Jr., MD Work Phone: [facility] 02-03-2022 14:39-0500 Diastolic blood pressure 84 mm[Hg] Holden Guy Jr., MD Work Phone: [facility] 02-03-2022 14:39-0500 Heart rate 62 /min Holden Guy Jr., MD Work Phone: [facility] 02-03-2022 14:39-0500 SaO2% (BldA) [Mass fraction] 100 % Holden Guy Jr., MD Work Phone: [facility] 02-03-2022 14:39-0500 Systolic blood pressure 128 mm[Hg] Holden Guy Jr., MD Work Phone: [facility] 11-24-2021 10:59-0400 Body height 166.4 cm Dawson Santiago MD Work Phone: [facility] 11-24-2021 10:59-0400 Body weight 65.77 kg Dawson Santiago MD Work Phone: [facility] 11-24-2021 10:59-0400 Respiratory rate 20 /min Dawson Santiago MD Work Phone: [facility] 10-26-2021 13:19-0400 Body height 166.4 cm Holden Guy Jr., MD Work Phone: [facility] 10-26-2021 13:19-0400 Diastolic blood pressure 87 mm[Hg] Holden Guy Jr., MD Work Phone: [facility] 10-26-2021 13:19-0400 Heart rate 64 /min Holden Guy Jr., MD Work Phone: [facility] 10-26-2021 13:19-0400 SaO2% (BldA) [Mass fraction] 98 % Holden Guy Jr., MD Work Phone: [facility] 10-26-2021 13:19-0400 Systolic blood pressure 134 mm[Hg] Holden Guy Jr., MD Work Phone: [facility] Encounters Encounter Date Encounter Type Care Provider Facility Start: 09-26-2024 ambulatory [facility] Facility:[facility] Start: 07-25-2024 End: 07-25-[address] Marcella Aguilar MD Work Phone: [facility] Work Phone: Start: 07-25-2024 End: 07-25-[address] Marcella Aguilar MD -Outpatient Breast Imaging Work Phone: Start: 07-25-2024 End: 07-25-2024 ambulatory Marcella Aguilar Facility:[facility] Start: 07-22-2024 End: 07-22-[address] Marcella Aguilar MD Work Phone: [facility] Work Phone: Start: 07-22-2024 End: 07-22-[address] Marcella Aguilar MD -Outpatient Bone Densitometry Work Phone: Start: 07-22-2024 End: 07-22-2024 ambulatory Marcella Aguilar Facility:[facility] Start: 01-10-2024 End: 01-10-2024 Refill Aide Hess MD Work Phone: [facility] Comment on above: Refill Request Start: 11-21-2023 End: 11-21-2023 Subsequent hospital visit by physician Jj Manzano[address] [facility] Comment on above: Hyperlipidemia, unsp ecified Start: 11-21-2023 End: 11-21-2023 ambulatory MARCELLA DENIS [facility] Start: 11-06-2023 End: 11-06-2023 ambulatory Doris Luis Facility:[facility] Start: 07-13-2023 Refill Aide eHss MD Work Phone: [facility] Comment on above: Refill Request Start: 01-11-2023 Refill Holden Guy MD Work Phone: [facility] Comment on above: Refill Request Start: 10-09-2022 End: 10-09-2022 Office outpatient visit 25 minutes Marcella Aguilar MD Work Phone: [facility] Start: 07-25-2022 End: 07-25-2022 Patient encounter procedure Marcella Aguilar MD Work Phone: [facility] Start: 06-28-2022 ambulatory Marcella Aguilar MD [facility] Internal [facility] Start: 06-23-2022 End: 06-23-2022 Annotation/Addendum Marcella Aguilar MD Work Phone: [facility] Internal Medicine Start: 06-17-2022 Refill Holden Guy MD Work Phone: [facility] Comment on above: Refill Request Start: 05-17-2022 Review Marcella Sanchez Work Phone: [facility] Start: 04-20-2022 End: 04-20-2022 Office outpatient new 45 minutes Marcella Aguilar MD Work Phone: [facility] Start: 03-07-2022 Telephone encounter Holden Guy MD Work Phone: [facility] Comment on above: Referral Request (En do) Start: 02-03-2022 End: 02-06-2022 ambulatory HOLDEN GUY JR Facility:[facility] Start: 02-03-2022 End: 02-03-2022 Patient encounter procedure Holden Guy MD Work Phone: [facility] Comment on above: Hypertension, essent ial (Primary Dx); Encounter for screening mammogram for malignant neoplasm of breast; Screening for osteoporosis; Senile osteoporosis; Age related osteoporosis, unspecified pathological fracture presence Start: 01-30-2022 End: 01-31-2022 ambulatory HOLDEN GUY JR Facility:[facility] Start: 01-25-2022 Telephone encounter Holden Guy MD Work Phone: [facility] Comment on above: Orders Start: 01-09-2022 Refill Holden Guy MD Work Phone: [facility] Comment on above: Refill Request Start: 01-09-2022 Telephone encounter Holden Guy MD Work Phone: [facility] Comment on above: Results Opened In Error Start: 11-24-2021 End: 11-24-2021 ambulatory HOLDEN GUY JR Facility:[facility] Start: 11-24-2021 End: 11-24-2021 Patient encounter procedure Dawson Santiago MD Work Phone: [facility] Comment on above: Trochanteric bursiti s of left hip (Primary Dx); Hip abductor tendonitis, left Start: 10-26-2021 End: 10-26-2021 ambulatory HOLDEN GUY JR Facility:[facility] Start: 10-26-2021 Telephone encounter Holden Guy MD Work Phone: [facility] Comment on above: Referral Information (ORTHOPEDICS) Start: 10-26-2021 End: 10-26-2021 Patient encounter procedure Holden Guy MD Work Phone: [facility] Comment on above: Hypertension, essent ial (Primary Dx); Hip pain Start: 10-20-2021 End: 10-21-2021 ambulatory MONICA RUSSELL Facility:[facility] Start: 04-10-2018 End: 04-10-2018 Patient encounter procedure DAMIEN SARAH [facility] Patient encounter procedure Marcella Aguilar MD Work Phone: [facility] Work Phone: Comment on above: 5-23 [facility] [place] py 2017 mammo 2022 BD 2022. Patient encounter procedure Mark Silva LPN [facility] Work Phone: Comment on above: 5-23 [facility] [place] py 2017 mammo 2022. Procedures Date Procedure Procedure Detail Performing Clinician Start: 07-25-[address] Marcella arshad MD Work Phone: Start: 07-25-[address] Marcella Aguilar MD Work Phone: Start: 07-22-2024 Dual energy X-ray absorptiometry Dr. Marcella Aguilar MD Work Phone: Start: 07-22-[address] Marcella Sanchez Work Phone: Start: 07-12-2022 End: 07-13-2022 Dexa Bone Density Study Procedure Note: See Note; NOTES: [facility] Imaging Services [address] [place] [address] Dexa Bone Density Study MR#: [id number] Acct: [id number] Name: EMMANUELLE ABREU Rep #: [id number] : 1950 F 71 From: Yunior lópez MD PCP: Dr. Marcella Aguilar MD Status: [facility] Study: Dexa Bone Density Study Date of Exam: 07/12/22 Exam# [id number] Ordering Dr: Marcella Aguilar MD STUDY: DUAL ENERGY X-RAY ABSORPTIOMETRY / DXA REASON FOR EXAM: Female, 71 years old. [id number] TECHNIQUE: Bone Mineral Density (BMD) measurements of lumbar spine and bilateral hips were obtained. COMPARISON: None. FINDINGS: Lumbar Spine (L1-L4): g/cm2 (1.056) / T-score (0.1) / Z-score (2.3) Findings are suggestive of normal bone density with a low fracture risk. Left Femur Total: g/cm2 (0.642) / T-score (-2.5) / Z-score (-0.9) Left Femoral Neck: g/cm2 (0.594) / T-score (-2.3) / Z-score (-0.4) Right Femur Total: g/cm2 (0.648) / T-score (-2.4) / Z-score (-0.8) Right Femoral Neck: g/cm2 (0.529) / T-score (-2.9) / Z-score (-1.0) BD/Dexa Bone Density Study IMPRESSION: The patient is considered osteoporotic as outlined below according to World [employer] Organization (WHO) criteria with a high fracture risk. Reference Information: The T-score is the number of standard deviations above or below the standard which is normal for young adults at their peak bone mineral density. The World Health Organization (WHO) interprets the T-scores as follows: Above -1 Normal bone density Between -1 and -2.5 Osteopenia Equal to / or below -2.5 Osteoporosis As a practical clinical guideline, osteopenia may be graded as follows: Mild -1 through -1.5 Moderate -1.6 through -2.0 Severe -2.1 through -2.4 The Z-score is the number of standard deviations above or below age-matched controls. A Z-score of less than -1.5 would be considered abnormal. References: 1. NIH Osteoporosis and Related Bone Diseases www osteo.org 2. International Society for Clinical Densitometry www iscd.org 3. National Osteoporosis Foundation www nof.org Electronically Signed: Yunior Butler MD at 9:04 EDT , CC: Dr. Marcella Aguilar MD Switch Box Installer: Signed Marcella Aguilar MD Work Phone: Start: 07-12-2022 End: 07-25-2022 SCRN MAMM (CAD)W/STANTON BILAT Procedure Note: See Note; NOTES: [facility] Imaging Services [address] [place] [address] SCRN MAMM (CAD)W/STANTON BILAT MR#: [id number] Acct: [id number] Name: EMMANUELLE ABREU Rep #: [id number] : 1950 F 71 From: Yunior lópez MD PCP: Dr. Marcella Aguilar MD Status: [facility] Study: SCRN MAMM (CAD)W/STANTON BILAT Date of Exam: 06/26 09/17 Exam# [id number] Ordering Dr: Marcella Aguilar MD MAMMOGRAPHY - BILATERAL SCREENING REASON FOR EXAM: Female, 71 years old. Routine annual screening examination. PERTINENT HISTORY: Non-contributory. TECHNIQUE: Digital bilateral breast stanton (3D mammographic acquisition) in the CC and MLO projections. 2-D mediolateral oblique (MLO) and craniocaudad (CC) views of both breasts were obtained. CAD: Full Field Digital Mammography with Computer Added Detection was performed. COMPARISON: Comparison is made with prior outside examination dated October 19, 2020. FINDINGS: Breast Composition: The breasts are heterogeneously dense, which may obscure small masses. There are no dominant masses or suspicious calcifications. No other significant abnormalities are identified. There has been no significant change since the prior study. BI/SCRN MAMM (CAD)W/STANTON BILAT IMPRESSION: Stable bilateral screening mammogram. Yearly follow-up mammogram recommended. (A) ASSESSMENT CATEGORY: BIRADS Category 1: Negative. A letter regarding these results will be sent to the patient by the facility within 30 days. Approximately 10% of breast cancers are not detected by mammography. A normal mammogram should not delay biopsy of a clinically suspicious abnormality. [id number] Electronically Signed: Yunior Butler MD at 13:40 EDT , CC: Dr. Marcella Aguilar MD Switch Box Installer: Signed Marcella Aguilar MD Work Phone: Start: 10-26-2021 Adult depression screening assessment Holden Guy Jr., MD Work Phone: Start: 10-20-2021 Lipid 1996 panel - Serum or Plasma Holden Guy Jr., MD Work Phone: Plan of Treatment Date Care Activity Detail Author Start: 10-20-2026 Lipid 1996 panel - Serum or Plasma Lipid Screening [facility] Start: 10-20-2026 Lipid panel Lipid Screening [facility] Start: 10-20-2026 LIPID SCREEN LIPID SCREEN [facility] Start: 2025 RSV Vaccine (1 - 1-dose 75+ series) RSV Vaccine (1 - 1-dose 75+ series) [facility] Start: 10-20-2024 DIABETES SCREEN DIABETES SCREEN [facility] Start: 10-20-2024 Diabetes Screening Diabetes Screening [facility] Start: 05-17-2024 DTaP/Tdap/Td Vaccines (3 - Td or Tdap) DTaP/Tdap/Td Vaccines (3 - Td or Tdap) [facility] Start: 05-17-2024 Urine microalbumin profile DTaP,Tdap,Td Vaccine (3 - Td or Tdap) [facility] Start: 10-28-2023 COVID-19 Vaccine ( season) COVID-19 Vaccine () [facility] Start: 10-28-2023 Covid-19 Vaccine ( season) Covid-19 Vaccine ( season) [facility] Start: 10-28-2023 Influenza vaccination [facility] Start: 02-26-2023 Advance Directive Discussion Advance Directive Discussion [facility] Start: 02-26-2023 Behavioral Health Screening Behavioral Health Screening [facility] Start: 02-03-2023 ANNUAL PCP TEAM CHRONIC DISEASE VISIT ANNUAL PCP TEAM CHRONIC DISEASE VISIT [facility] Start: 10-27-2022 Covid-19 Vaccine () Covid-19 Vaccine () [facility] Start: 10-27-2022 Influenza vaccination Influenza Vaccine (#1) [facility] Start: 10-26-2022 Adult depression screening assessment DEPRESSION SCREENING [facility] Start: 10-09-2022 25 hydroxy includes fractions if performed CALCIFIDIOL (10835) VIT D 25 [facility]; [facility] Work Phone: Start: 10-09-2022 Basic metabolic panel calcium total Metabolic Panel, Basic (74802) [facility]; [facility] Work Phone: Start: 10-09-2022 Procedure Education Eprescribed prescriptions (G8553) [facility]; [facility] Work Phone: Start: 07-25-2022 Procedure Education Eprescribed prescriptions (G8553) [facility]; [facility] Work Phone: Start: 07-25-2022 Assay of ferritin Ferritin (73144) [facility]; [facility] Work Phone: Start: 07-25-2022 C-reactive protein high sensitivity C-REACT PROT HIGH SENS(hsCRP) (82774) [facility]; [facility] Work Phone: Start: 07-25-2022 Assay of osmolality blood OSMOLALITY BLOOD (65648) [facility]; [facility] Work Phone: Start: 07-25-2022 Sodium serum plasma or whole blood SODIUM SERUM (53437) [facility]; [facility] Work Phone: Start: 04-20-2022 Assay of parathormone PARATHORMONE (19291) [facility] Work Phone: Start: 04-20-2022 Organic acid 1 quantitative Methymalonic Acid, Serum (09264) [facility]; [facility] Work Phone: Start: 04-20-2022 Cyanocobalamin vitamin b-12 Vitamin B-12 (cyanocobalamin) (70945) [facility]; [facility] Work Phone: Start: 04-20-2022 Hepatitis c antibody HEPATITIS C ANTIBODY (06964) [facility]; [facility] Work Phone: Start: 04-20-2022 Fluorescent nonnfct agt antb screen ea antibody Celiac Panel (05982) [facility]; [facility] Work Phone: Start: 04-20-2022 Assay of triiodothyronine t3 free T3, FREE (TRIDOTHYRONINE) (90921) [facility]; [facility] Work Phone: Start: 04-20-2022 Assay of free thyroxine T4, FREE (THYROXINE) (57422) [facility]; [facility] Internal [facility] Work Phone: Start: 04-20-2022 Assay of homocysteine Homocysteine, Plasma (02804) [facility] Medicine; [facility] Work Phone: Start: 02-26-2022 ADVANCE DIRECTIVE DISCUSSION ADVANCE DIRECTIVE DISCUSSION [facility] Start: 02-26-2022 DEPRESSION ASSESSMENT DEPRESSION ASSESSMENT [facility] Start: 01-25-2022 End: 03-27-2022 25-hydroxyvitamin D3 [Mass/volume] in Serum or Plasma VITAMIN D 25 HYDROXY Lab Routine Vitamin D deficiency Expected: 01/25/2022, Expires: 03/27/2022 [facility] Work Phone: Comment on above: Expected: 01/25/2022, Expires: 3 Start: 01-25-2022 End: 03-27-2022 Iron and Iron binding capacity panel - Serum or Plasma IRON + TIBC Lab Routine Alopecia areata Expected: 01/25/2022, Expires: 03/27/2022 [facility] Work Phone: Comment on above: Expected: 01/25/2022, Expires: 3 Start: 01-25-2022 End: 03-27-2022 Thyrotropin [Units/volume] in Serum or Plasma TSH BLD Lab Routine Alopecia areata Expected: 01/25/2022, Expires: 03/27/2022 [facility] Work Phone: Comment on above: Expected: 01/25/2022, Expires: 3 Start: 12-07-2021 Urine microalbumin profile DTAP,TDAP,TD (2 - Td or Tdap) [facility] Start: 10-27-2021 Influenza vaccination INFLUENZA (#1) [facility] Start: 02-26-2021 ADVANCE DIRECTIVE DISCUSSION ADVANCE DIRECTIVE DISCUSSION [facility] Start: 02-26-2021 DEPRESSION ASSESSMENT DEPRESSION ASSESSMENT [facility] Start: 12-25-2015 BONE DENSITY BONE DENSITY [facility] Start: 12-25-2015 Bone Density Screening Bone Density Screening [facility] Start: 12-25-2015 Pneumococcal Vaccine: 65+ (2 - PCV) Pneumococcal Vaccine: 65+ (2 - PCV) [facility] Start: 12-25-2015 Pneumococcal Vaccine: 65+ (2 of 2 - PCV) Pneumococcal Vaccine: 65+ (2 of 2 - PCV) [facility] Start: 12-25-2015 Pneumococcal Vaccine: 65+ Years (2 of 2 - PCV) Pneumococcal Vaccine: 65+ Years (2 of 2 - PCV) [facility] Start: 12-25-2015 PNEUMOCOCCAL: 65+ (1 - PCV) PNEUMOCOCCAL: 65+ (1 - PCV) [facility] Start: 12-25-2015 Screening for osteoporosis Bone Density Screening [facility] Start: 12-07-2012 PNEUMOCOCCAL: 65+ (2 - PCV) PNEUMOCOCCAL: 65+ (2 - PCV) [facility] Start: 04-23-2012 Shingrix Vaccine (2 of 3) Shingrix Vaccine (2 of 3) [facility] Start: 02-20-2012 SHINGRIX VACCINE (2 of 3) SHINGRIX VACCINE (2 of 3) [facility] Start: 02-20-2012 Zoster Vaccines (2 of 3) Zoster Vaccines (2 of 3) [facility] Start: 2010 RSV patients and/or patients aged 60+ years (1 - 1-dose 60+ series) RSV patients and/or patients aged 60+ years (1 - 1-dose 60+ series) [facility] Start: 2010 RSV Vaccine (1 - 1-dose 60+ series) RSV Vaccine (1 - 1-dose 60+ series) [facility] Start: 12-25-1995 COLOGUARD (FIT-DNA) COLOGUARD (FIT-DNA) [facility] Start: 12-25-1995 Colonoscopy COLONOSCOPY [facility] Start: 12-25-1995 COLORECTAL CANCER SCREENING COLORECTAL CANCER SCREENING [facility] Start: 12-25-[address] COLONOGRAPHY [facility] Start: 12-25-1995 FECAL OCCULT BLOOD FECAL OCCULT BLOOD [facility] Start: 12-25-1995 Screening for malignant neoplasm of colon [facility] Start: 12-25-1995 SIGMOIDOSCOPY SIGMOIDOSCOPY [facility] Start: 1990 Mammography [facility] Start: 1990 Screening for malignant neoplasm of breast Mammogram Screening [facility] Start: 1968 Anxiety Screening Anxiety Screening [facility] Start: 1968 BP CONTROLLED (<130/80) BP CONTROLLED (<130/80) [facility] Start: 1968 Depression Screening Depression Screening [facility] Start: 1968 HEPATITIS C SCREENING HEPATITIS C SCREENING [facility] Start: 1968 Hepatitis C screening Hepatitis C Screening [facility] Start: 06-25-1951 COVID-19 VACCINE (#1) COVID-19 VACCINE (#1) [facility] Start: 1950 Lipid panel Lipid Panel [facility] Start: 1950 Medicare Annual Wellness Visit Medicare Annual Wellness Visit (AWV) [facility] Start: 1950 Screening for malignant neoplasm of colon [facility] Start: 1950 Screening for osteoporosis Bone Density Scan [facility] End: 11-21-2023 CT for calcium scoring WO contrast and CTA W contrast IV Heart and coronary arteries [facility] Service Area Work Phone: Comment on above: Once for 1 Occurrences starting 11/21/19 24 until 11/21/2023 End: 03-05-2023 Dxa bone density study axial skeleton DXA-AXIAL SKELETON WITH VFA Radiology Routine Age related osteoporosis, unspecified pathological fracture presence 1 Occurrences starting 02/03/2022 until 03/05/2023 [facility] Work Phone: Comment on above: 1 Occurrences starting 02/03/2022 until 03/05/2023 End: 03-05-2023 JAYDEN SCREENING JAYDEN SCREENING Radiology Routine Encounter for screening mammogram for malignant neoplasm of breast 1 Occurrences starting 02/03/2022 until 03/05/2023 [facility] Work Phone: Comment on above: 1 Occurrences starting 02/03/2022 until 03/05/2023 Radex hip unilateral with pelvis 1 view XR HIP 1V UNIL W PELVIS WHEN PERFORMED (AG) Radiology Routine Trochanteric bursitis of left hip Hip abductor tendonitis, left Ordered: 11/24/2021 [facility] Work Phone: Comment on above: Ordered: 11/24/2021 [facility] Work Phone: [facility] Work Phone: [facility] Work Phone: Immunizations Immunization Date Immunization Notes Care Provider Fa cili 12-26-2021 influenza virus vacc ine, unspecified formulation Holden Guy Jr., MD Work Phone: [facility] 12-26-2011 influenza virus vacc elisabeth, unspecified formulation Holden Guy Jr., MD Work Phone: [facility] 12-26-2011 zoster vaccine, live Holden Guy Jr., MD Work Phone: [facility] 12-08-2011 pneumococcal polysaccharide vaccine, 23 valent Holden Guy Jr., MD Work Phone: [facility] 12-08-2011 tetanus toxoid, redu dayanna diphtheria toxoid, and acellular pertussis vaccine, adsorbed Holden Guy Jr., MD Work Phone: [facility] Payers Date Payer Category Payer Self-pay 2015 Medicare [id number] 2015 Medicare [id number] 2015 Unknown [id number] 2015 Unknown [id number] 2015 Medicare [id number] 1950 Unknown [id number] 1950 Unknown [id number] Private Health Insurance [employer] [id number] Unknown [id number] Unknown [id number] Unknown [id number] Unknown [id number] Social History Date Type Detail Facility Start: 10-26-2021 Tobacco smoking status NHIS Never smoked tobacco [facility] Start: 10-26-2021 Tobacco use and exposure Smokeless tobacco non-user [facility] Start: 10-26-2021 End: 02-03-2022 Alcohol intake Current drinker of alcohol (finding) [facility] Start: 04-10-2018 History SDOH Alcohol Comment 1 sevring wine/daily [facility] Start: 1950 Sex Assigned At Not on file [facility] Start: 10-16-2021 End: 11-21-2023 Exposure to SARS-CoV-2 (event) Not sure [facility] Alcohol Use: Alcohol Use: [facility] Work Phone: Comment on above: a glass a night Start: 02-03-2022 End: 03-16-2022 Current Household Members Current Household Members [facility]; [facility] Work Phone: Exercise History: Exercise History: [facility]; [facility] Work Phone: Comment on above: Jazz[employer] Living Situation: Living Situation: [facility] Work Phone: Comment on above: lived in [place] the n HH then ocrbin not like so back in [place] has family here Start: 02-03-2022 End: 03-16-2022 Tobacco use panel [facility] Adult Depression Screening Assessment 0 [facility] Tobacco smoking status NHIS Tobacco smoking consumption unknown [facility] Work Phone: Start: 1950 Sex Assigned At Female [facility] Clinical Notes 10-26-2021 to 07-25-2024 Telephone Encounter - Vy Alvarez Ma - 01/12/2023 9:22 AM ESTTelephone Encounter - Vy Alvarez Ma - 06/19/2022 11:30 AM EDTTelephone Encounter - Vy Alvarez Ma - 03/07/2022 3:09 PM EST Note Date & Type Note Facility 07-25-2024 Radiology Diagnostic study note [facility] Imaging Services [address] [place] [address] [id number] Breast Limited Unilateral MR#: [id number] Acct: [id number] Name: EMMANUELLE ABREU Rep #: [id number] : 1950 F 73 From: Salvador Butler MD PCP: Dr. Marcella Aguilar MD Status: [facility] Study:Breast Limited Unilateral Date of Exam: 07/25/24 Exam# [id number] Ordering Dr: Marcella Aguilar MD PROCEDURE: BREAST LIMITED UNILATERAL 07/25/2024 REASON FOR EXAM: ABN MAMM TECHNIQUE: Targeted right breast ultrasound. COMPARISON: Prior mammogram dated July 25, 2024 and July 22, 2024. FINDINGS: Right breast ultrasound was targeted to the right axillary region.. There is a 1.5 cm x 0.8 cm x 0.6 cm benign-appearing lymph node at the 11 o'clock position of the breast at 10 cm from the nipple. US/Breast Limited Unilateral IMPRESSION: 1.5 cm x 0.8 cm x 0.6 cm benign-appearing lymph node at the 11 o'clock position of the breast at 10 cm from the nipple. Follow-up code: Routine Follow-up. BI-RADS category 2. Reading Location: [facility] CC: Dr. Marcella Aguilar MD ~ Switch Box Installer: Signed [facility] 01-12-2023 Miscellaneous Notes Pharmacy called requesting the following refill Refill(s) Requested: Requested Prescriptions Pending Prescriptions Disp Refills felodipine ER (PLENDIL) 10 mg 24 hr tablet [Pharmacy Med Name: FELODIPINE ER 10 MG TABLET] 90 tablet 1 Sig: take 1 tablet by mouth every day ALLERGIES Allergen Reactions Compazine [Prochlor* Other: See Comments ' eyes rolled,neck drawn done (home) [phone] (cell) Last Office Visit Date: 02/03/2022 Last Distance Health Visit: Visit date not found Future Appointment: Visit date not found The patients preferred pharmacy has been captured for this encounter? yes Request is for script(s) to be escript to pharmacy. Vy Alvarez Ma documented in this encounter [facility] 06-19-2022 Miscellaneous Notes Pharmacy called requesting the following refill Refill(s) Requested: Requested Prescriptions Pending Prescriptions Disp Refills hydroCHLOROthiazide 25 mg tablet [Pharmacy Med Name: HYDROCHLOROTHIAZIDE 25 MG TAB] 90 tablet 0 Sig: TAKE 1 TABLET BY MOUTH EVERY DAY ALLERGIES Allergen Reactions Compazine [Prochlor* Other: See Comments ' eyes rolled,neck drawn done (home) [phone] (cell) Last Office Visit Date: Visit date not found Last Distance Health Visit: Visit date not found Future Appointment: Visit date not found The patients preferred pharmacy has been captured for this encounter? yes Request is for script(s) to be escript to pharmacy. Vy Alvarez Ma documented in this encounter [facility] 03-07-2022 Miscellaneous Notes Called pt back relayed msg, back is very upset and wants you to review the blood work from when she went to speed reading teacher. Will have office fax over Left msg for pt to CB with more details of speed reading teacher thinks she should see a specialist Wants referral to endo ----- Message from Brisa Patel sent at 03/07/2022 9:24 AM EST ----- Regarding: Medicine l Piotr stroud Referral Subject Line Format: Medicine / [Provider Name] / [Issue] Patient has been identified by name and Date of (Y/N): y Patient: Emmanuelle Abreu Date of : 1950 Provider for this encounter: Holden Guy Jr, MD Reason for the call/escalation: Patient was told by their speed reading teacher that she needs to see an hand pattern marker . She needs a referral to be able to see the hand pattern marker that she was made an appointment with. She also needs to know where to send the blood work from her speed reading teacher to. She would like a call back to get this all sorted out. Was Patient Referred to [facility]/Seek Emergency Treatment (Y/N): n Did Patient Agree (Y/N): n/a Was An Attempt Made To Transfer The Patient To The Office (Y/N): y Were You Able To Reach Someone At The Office (Y/N): n If Yes - Patient Was Transferred To (Caregivers Name): n/a If No - Which [facility] Leadership Corporate Wellness Coordinator Did You Speak With Regarding This Patient: n/a Was an appointment scheduled (Y/N): n Reason patient was requesting visit (RFV/signs and symptoms/diagnosis) : n/a Person calling if other than patient: self Return call to if other than patient: self Best contact number: [phone] Thank you, Brisa Patel March 07, 2022 9:24 AM documented in this encounter [facility] 02-03-2022 Note HNO ID: [id number] Author: Holden Guy Jr., MD Service: ? Author Type: Physician Type: Progress Notes Filed: 02/05/2022 12:12 PM Note Text: Holden Guy Jr., M.D. [facility] [address] [address] Date of Evaluation: 02/03/2022 Patient Name: Emmanuelle Abreu : 1950 Chief Complaint: Patient presents with: Blood Pressure Check Nursing Intake: There are no exam notes on file for this visit. Subjective Ms. Abreu is a 71 year old female who presents with the following complaint(s): HPI Pt continues on 10 mg felodipine ER daily and HCTZ 25 mg daily increased from 12.5 mg 10/26/21. Pt feels well and would like to continue present meds. Review of Systems Constitutional: Negative for fever and weight loss. HENT: Negative for congestion, ear pain and nosebleeds. Eyes: Negative for blurred vision and double vision. Respiratory: Negative for cough and shortness of breath. Cardiovascular: Negative for chest pain and palpitations. Gastrointestinal: Negative for abdominal pain and heartburn. Genitourinary: Negative for dysuria and frequency. Musculoskeletal: Negative for back pain, joint pain and myalgias. Skin: Negative for itching and rash. Neurological: Negative for dizziness and focal weakness. Psychiatric/Behavioral: Negative for depression. The patient is not nervous/anxious. PAST MEDICAL HISTORY Diagnosis Date DVT (deep venous thrombosis) (HCC) 1999 L LE DVT following bunion surgery Hypertension 2006 PAST SURGICAL HISTORY Procedure Laterality Date CORRECTION OF BUNION 01/1999 FAMILY HISTORY Problem Relation Age of Onset other (ALS) Mother age 73 ALS Cancer Father age 88 lung CA Ischemic Heart Disease Father HI age 80's in setting of chemotherapy Heart Maternal Aunt maternal aunt with atrial fibrillation Ischemic Heart Disease Maternal Uncle CAD HI age 60-70's? Social History Tobacco Use Smoking status: Never Smokeless tobacco: Never Substance Use Topics Alcohol use: Yes Comment: 1 sevring wine/daily Drug use: No Current Meds hydroCHLOROthiazide (HYDRODIURIL, ESIDRIX) 25 mg tablet TAKE 1 TABLET BY MOUTH EVERY DAY felodipine ER (PLENDIL) 10 mg 24 hr tablet olmesartan medoxomil (OLMESARTAN ORAL) Take 20 mg by mouth once daily. celecoxib (CELEBREX) 200 mg capsule Take 1 capsule by mouth once daily. (Patient not taking: Reported on 02/03/2022) carvedilol (COREG) 6.25 mg tablet Take 6.25 mg by mouth twice daily. Pt takes two tablets in the am and two tablets in the pm. (Patient not taking: Reported on 02/03/2022) I have confirmed and edited as necessary the chief complaint, medications, past medical, family and social histories obtained by others. Objective BP 128/84 Pulse 62 Wt 143 lb 6.4 oz (65.0kg) SpO2 100% Physical Exam Vitals and nursing note reviewed. HENT: Head: Normocephalic. Right Ear: External ear normal. Left Ear: External ear normal. Eyes: Pupils: Pupils are equal, round, and reactive to light. Cardiovascular: Rate and Rhythm: Normal rate and regular rhythm. Heart sounds: Normal heart sounds. Pulmonary: Effort: Pulmonary effort is normal. Breath sounds: Normal breath sounds. Abdominal: General: Bowel sounds are normal. Palpations: Abdomen is soft. There is no mass. Musculoskeletal: General: No tenderness. Normal range of motion. Cervical back: Normal range of motion and neck supple. Lymphadenopathy: Cervical: No cervical adenopathy. Skin: General: Skin is warm and dry. Neurological: Mental Status: She is alert and oriented to person, place, and time. Gait: Gait is intact. Deep Tendon Reflexes: Reflexes are normal and symmetric. Psychiatric: Mood and Affect: Mood and affect normal. ASSESSMENT/PLAN: 1. Hypertension, essential - ICD9: 401.9, ICD10: I10 (primary diagnosis) - good control - Continue current medication(s) - Recommended regular aerobic exercise. - Recommend home blood pressure monitoring, to bring results in on next visit - Goal of BP <130/80 - FELODIPINE ER 10 MG TABLET,EXTENDED RELEASE 24 HR - HYDROCHLOROTHIAZIDE 25 MG TABLET 2. Encounter for screening mammogram for malignant neoplasm of breast - ICD9: V76.12, ICD10: Z12.31 - Set up for mammogram, yearly mammogram recommended - Encouraged monthly BSE - Follow up for annual exam in one year. - JAYDEN SCREENING 3. Screening for osteoporosis - ICD9: V82.81, ICD10: Z13.820 4. Senile osteoporosis - ICD9: 733.01, ICD10: M81.0 - Reviewed the need for Calcium and Vitamin D supplements and weight bearing exercise as tolerated 5. Age related osteoporosis, unspecified pathological fracture presence - ICD9: 733.01, ICD10: M81.0 - Reviewed the need for Calcium and Vitamin D supplements and weight bearing exercise as tolerated - DXA-AXIAL SKELE (more content not included)... [facility] 02-03-2022 Instructions Holden Guy Jr., MD - 02/03/2022 3:06 PM EST BONE MINERAL DENSITY PATIENT INSTRUCTIONS ======= Bone mineral density testing measures the amount of calcium in certain parts of your bones. This information determines how strong your bones are. The test is used to detect osteoporosis, a disease in which the bone's mineral content and density are low, increasing a person's risk of fractures. The lumbar spine (lower back) and the hip are the skeletal sites usually examined. For the test, remember that: 1. You cannot take this test if you are . 2. Eat a normal diet on the day of the test. 3. Take your medications as you normally would. 4. DO NOT take calcium supplements (such as Tums) for 24 hours before the test. 5. On the day of the test, leave valuables (jewelry or credit cards) at home. 6. The test should be performed prior to oral, rectal or IV contrast studies, or at least 7 days after any of these studies. For the test, you may be asked to wear a hospital gown. You will lie on your back, on a padded table, in a comfortable position. Generally, you can resume your usual activities immediately. documented in this encounter [facility] 02-03-2022 History of Present illness Narrative Images from the original note were not included. Holden Guy Jr., M.D. [facility] [address] [address] Date of Evaluation: 02/03/2022 Patient Name: Emmanuelle Abreu : 1950 Chief Complaint: Patient presents with: Blood Pressure Check Nursing Intake: There are no exam notes on file for this visit. Subjective Ms. Abreu is a 71 year old female who presents with the following complaint(s): HPI Pt continues on 10 mg felodipine ER daily and HCTZ 25 mg daily increased from 12.5 mg 10/26/21. Pt feels well and would like to continue present meds. Review of Systems Constitutional: Negative for fever and weight loss. HENT: Negative for congestion, ear pain and nosebleeds. Eyes: Negative for blurred vision and double vision. Respiratory: Negative for cough and shortness of breath. Cardiovascular: Negative for chest pain and palpitations. Gastrointestinal: Negative for abdominal pain and heartburn. Genitourinary: Negative for dysuria and frequency. Musculoskeletal: Negative for back pain, joint pain and myalgias. Skin: Negative for itching and rash. Neurological: Negative for dizziness and focal weakness. Psychiatric/Behavioral: Negative for depression. The patient is not nervous/anxious. PAST MEDICAL HISTORY Diagnosis Date DVT (deep venous thrombosis) (HCC) 1999 L LE DVT following bunion surgery Hypertension 2006 PAST SURGICAL HISTORY Procedure Laterality Date CORRECTION OF BUNION 01/1999 FAMILY HISTORY Problem Relation Age of Onset other (ALS) Mother age 73 ALS Cancer Father age 88 lung CA Ischemic Heart Disease Father HI age 80's in setting of chemotherapy Heart Maternal Aunt maternal aunt with atrial fibrillation Ischemic Heart Disease Maternal Uncle CAD HI age 60-70's? Social History Tobacco Use Smoking status: Never Smokeless tobacco: Never Substance Use Topics Alcohol use: Yes Comment: 1 sevring wine/daily Drug use: No Current Meds hydroCHLOROthiazide (HYDRODIURIL, ESIDRIX) 25 mg tablet TAKE 1 TABLET BY MOUTH EVERY DAY felodipine ER (PLENDIL) 10 mg 24 hr tablet olmesartan medoxomil (OLMESARTAN ORAL) Take 20 mg by mouth once daily. celecoxib (CELEBREX) 200 mg capsule Take 1 capsule by mouth once daily. (Patient not taking: Reported on 02/03/2022) carvedilol (COREG) 6.25 mg tablet Take 6.25 mg by mouth twice daily. Pt takes two tablets in the am and two tablets in the pm. (Patient not taking: Reported on 02/03/2022) I have confirmed and edited as necessary the chief complaint, medications, past medical, family and social histories obtained by others. Objective BP 128/84 Pulse 62 Wt 143 lb 6.4 oz (65.0kg) SpO2 100% Physical Exam Vitals and nursing note reviewed. HENT: Head: Normocephalic. Right Ear: External ear normal. Left Ear: External ear normal. Eyes: Pupils: Pupils are equal, round, and reactive to light. Cardiovascular: Rate and Rhythm: Normal rate and regular rhythm. Heart sounds: Normal heart sounds. Pulmonary: Effort: Pulmonary effort is normal. Breath sounds: Normal breath sounds. Abdominal: General: Bowel sounds are normal. Palpations: Abdomen is soft. There is no mass. Musculoskeletal: General: No tenderness. Normal range of motion. Cervical back: Normal range of motion and neck supple. Lymphadenopathy: Cervical: No cervical adenopathy. Skin: General: Skin is warm and dry. Neurological: Mental Status: She is alert and oriented to person, place, and time. Gait: Gait is intact. Deep Tendon Reflexes: Reflexes are normal and symmetric. Psychiatric: Mood and Affect: Mood and affect normal. ASSESSMENT/PLAN: 1. Hypertension, essential - ICD9: 401.9, ICD10: I10 (primary diagnosis) - good control - Continue current medication(s) - Recommended regular aerobic exercise. - Recommend home blood pressure monitoring, to bring results in on next visit - Goal of BP <130/80 - FELODIPINE ER 10 MG TABLET,EXTENDED RELEASE 24 HR - HYDROCHLOROTHIAZIDE 25 MG TABLET 2. Encounter for screening mammogram for malignant neoplasm of breast - ICD9: V76.12, ICD10: Z12.31 - Set up for mammogram, yearly mammogram recommended - Encouraged monthly BSE - Follow up for annual exam in one year. - JAYDEN SCREENING 3. Screening for osteoporosis - ICD9: V82.81, ICD10: Z13.820 4. Senile osteoporosis - ICD9: 733.01, ICD10: M81.0 - Reviewed the need for Calcium and Vitamin D supplements and weight bearing exercise as tolerated 5. Age related osteoporosis, unspecified pathological fracture presence - ICD9: 733.01, ICD10: M81.0 - Reviewed the need for Calcium and Vitamin D supplements and weight bearing exercise as tolerated - DXA-AXIAL SKELETON WITH VFA Discussed satisfactory blood pressure control, diagnostic screens as above and will phone call follow-up results as obtained. Recheck in 6 months or as needed for problems. Holden Guy Jr, MD No follow-ups on file. The above diagnoses & plan of care have been created and agreed upon with the patient. This note was partially generated using [employer] voice recognition system, and there may be some incorrect words, spellings, and punctuation that were not noted in checking the note before saving. documented in this encounter [facility] 01-25-2022 Miscellaneous Notes Left msg that orders have been placed ----- Message from Tegan Dodson sent at 01/25/2022 11:06 AM EST ----- Regarding: Medicine /Holden Guy /hair falling out; requesting labs for thyroid--scheduled for 02/03 Patient has been identified by name and Date of (Y/N): y Patient: Emmanuelle Abreu Date of : 1950 Provider for this encounter: Holden Guy Jr, MD Reason for the call/escalation: hair falling out; requesting labs for thyroid--scheduled for 02/03 Was Patient Referred to [facility]/Seek Emergency Treatment (Y/N): no Did Patient Agree (Y/N): n/a Was An Attempt Made To Transfer The Patient To The Office (Y/N): no Were You Able To Reach Someone At The Office (Y/N): n/a If Yes - Patient Was Transferred To (Caregivers Name): n/a If No - Which [facility] Leadership Corporate Wellness Coordinator Did You Speak With Regarding This Patient: n/ Was an appointment scheduled (Y/N): no Reason patient was requesting visit (RFV/signs and symptoms/diagnosis) : hair falling out; requesting labs for thyroid--scheduled for 02/03 Person calling if other than patient: n/a Return call to if other than patient: n/a Best contact number: [phone] Thank you, Tegan Dodson January 25, 2022 11:07 AM documented in this encounter [facility] 01-09-2022 Miscellaneous Notes Patient called into the office inquiring about the refill requested by [facility]. She states the leave for the holidays on and needs to pick this up on at the latest. Please advise Zoë Donovan documented in this encounter [facility] 01-09-2022 Miscellaneous Notes Left detailed msg for pt to cut vit d supplement in half and too call with any questions or concerns ----- Message from Holden Guy Jr., MD sent at 12/27/2021 7:09 PM EDT ----- Reviewing old labs I note your Vit D level determined 10/20 was 118 --- this is too high and whatever supplement you are taking should be reduced by half, perhaps taking it only on odd calendar days, ie 1 - 3 - 5 etc. Chemistries, blood counts, and cholesterol levels were fine. Holden Guy Jr, MD documented in this encounter [facility] 11-24-2021 Note HNO ID: [id number] Author: Dawson Santiago MD Service: ? Author Type: Physician Type: Progress Notes Filed: 11/24/2021 11:59 AM Note Text: Patient ID: Emmanuelle Abreu is a 70 year old female. CC: Consultation requested by Holden Guy Jr, MD for evaluation of: Patient presents with: Left Hip - New, Pain HPI: Emmanuelle Abreu is a 70 year old female who presents with a history of activity related right hip pain. The patient denies specific injury or acute precipitating event. The pain is described as dull aching and sharp shooting pain and is present in the lateral thigh regions of the hip. The patient Does not require any ambulatory aids. The patient Does not walk with a limp. The patient Does have difficulty ascending and descending stairs as well as getting out of a chair. The pain is to the point where it is adversely affecting activities of daily living. Previous treatment has consisted of activity modification, nsaids celebrex The patient is referred for orthopedic evaluation and management. Pain Assessment intermittent The following portions of the patient's history were reviewed and updated as appropriate: allergies, current medications, past family history, past medical history, past social history, past surgical history and problem list. PAST MEDICAL HISTORY Diagnosis Date DVT (deep venous thrombosis) (HCC) 1999 L LE DVT following bunion surgery Hypertension 2005 PAST SURGICAL HISTORY Procedure Laterality Date CORRECTION OF BUNION 01/1999 ROS FAMILY HISTORY Problem Relation Age of Onset other (ALS) Mother age 73 ALS Cancer Father age 88 lung CA Ischemic Heart Disease Father HI age 80's in setting of chemotherapy Heart Maternal Aunt maternal aunt with atrial fibrillation Ischemic Heart Disease Maternal Uncle CAD HI age 60-70's? Social History Tobacco Use Smoking status: Never Smokeless tobacco: Never Substance Use Topics Alcohol use: Yes Comment: 1 sevring wine/daily Drug use: No Current Outpatient Medications Medication Sig Dispense Refill felodipine ER (PLENDIL) 10 mg 24 hr tablet hydroCHLOROthiazide (HYDRODIURIL, ESIDRIX) 12.5 mg capsule Take 12.5 mg by mouth once daily. hydroCHLOROthiazide (HYDRODIURIL, ESIDRIX) 25 mg tablet Take 1 tablet by mouth once daily. 90 tablet 0 celecoxib (CELEBREX) 200 mg capsule Take 1 capsule by mouth once daily. 60 capsule 1 hydroCHLOROthiazide (HYDRODIURIL, ESIDRIX) 12.5 mg tablet Take 12.5 mg by mouth once daily. carvedilol (COREG) 6.25 mg tablet Take 6.25 mg by mouth twice daily. Pt takes two tablets in the am and two tablets in the pm. (Patient not taking: No sig reported) olmesartan medoxomil (OLMESARTAN ORAL) Take 20 mg by mouth once daily. (Patient not taking: No sig reported) No current facility-administered medications for this visit. ALLERGIES Allergen Reactions Compazine [Prochlor* Other: See Comments ' eyes rolled,neck drawn done There is no problem list on file for this patient. Objective: On physical examination, the patient is a well appearing female in no respiratory distress. The patient is awake, alert and oriented to person, place and time. Body mass index is 23.76 kg/m?. Respirations are 18 and comfortable. Examination of the patient?s gait finds it to be nonantalgic, steady and well balanced. Inspection of the bilateral lower extremities does not demonstrate color, temperature or trophic changes. There is satisfactory alignment and no asymmetry. The patient is able to straight leg raise bilaterallyWithout pain. Leg lengths are equal. Examination of the left hip shows flexion of 110 degrees, internal rotation of 15 degrees and external rotation is 15 degrees. The skin is noted to be intact. There is no lymphadenopathy. There is tenderness over the trochanteric bursal region to palpation. The left lower extremity is otherwise neurovascularly intact. Examination of the right hip shows flexion of 110 degrees, internal rotation of 15 degrees and external rotation is 15 degrees. The skin is noted to be intact. There is no lymphadenopathy. There is not tenderness over the trochanteric bursal region to palpation. The right lower extremity is otherwise neurovascularly intact. Further examination of the bilateral lower extremities finds satisfactory ankle dorsiflexion and plantar flexion strength. Sensation is intact to light touch distally. Distal pulses are palpable. The feet are warm and viable and there is brisk capillary refill. Laurel Hip Score: see report Radiographs: Radiographs are reviewed from office today including AP pelvis and lateral view of the Left hip. Per my interpretation, these show no evidence of hip DJD bilateral hips Assessment: The primary encounter diagnosis was Trochanteric bursitis of left hip. A diagnosis of Hip abductor tendonitis, left was also pertinent to this visit. Plan: The clinical a (more content not included)... [facility] 11-24-2021 Note HNO ID: [id number] Author: Cristian Wild LPN Service: ? Author Type: LICENSED NURSE Type: Progress Notes Filed: 11/24/2021 11:59 AM Note Text: REVIEW OF SYSTEMS: GENERAL: Well developed, well nourished. No acute distress PAIN: Pain yes CARDIOVASCULAR: Negative for chest pain, leg swelling and palpations. MSK: Negative for joint swelling SKIN: Negative for lesions, rash, itching, metal sensitivity NEURO: Negative for seizure, trauma, numbness/tingling of extremities. ENDOCRINE: Negative for diabetic associated symptoms HEMATOLOGY: Clots of [facility] 11-24-2021 History of Present illness Narrative Patient ID: Emmanuelle Abreu is a 70 year old female. CC: Consultation requested by Holden Guy Jr, MD for evaluation of: Patient presents with: Left Hip - New, Pain HPI: Emmanuelle Abreu is a 70 year old female who presents with a history of activity related right hip pain. The patient denies specific injury or acute precipitating event. The pain is described as dull aching and sharp shooting pain and is present in the lateral thigh regions of the hip. The patient Does not require any ambulatory aids. The patient Does not walk with a limp. The patient Does have difficulty ascending and descending stairs as well as getting out of a chair. The pain is to the point where it is adversely affecting activities of daily living. Previous treatment has consisted of activity modification, nsaids celebrex The patient is referred for orthopedic evaluation and management. Pain Assessment intermittent The following portions of the patient's history were reviewed and updated as appropriate: allergies, current medications, past family history, past medical history, past social history, past surgical history and problem list. PAST MEDICAL HISTORY Diagnosis Date DVT (deep venous thrombosis) (HCC) 1999 L LE DVT following bunion surgery Hypertension 2006 PAST SURGICAL HISTORY Procedure Laterality Date CORRECTION OF BUNION 01/1999 ROS FAMILY HISTORY Problem Relation Age of Onset other (ALS) Mother age 73 ALS Cancer Father age 88 lung CA Ischemic Heart Disease Father HI age 80's in setting of chemotherapy Heart Maternal Aunt maternal aunt with atrial fibrillation Ischemic Heart Disease Maternal Uncle CAD HI age 60-70's? Social History Tobacco Use Smoking status: Never Smokeless tobacco: Never Substance Use Topics Alcohol use: Yes Comment: 1 sevring wine/daily Drug use: No Current Outpatient Medications Medication Sig Dispense Refill felodipine ER (PLENDIL) 10 mg 24 hr tablet hydroCHLOROthiazide (HYDRODIURIL, ESIDRIX) 12.5 mg capsule Take 12.5 mg by mouth once daily. hydroCHLOROthiazide (HYDRODIURIL, ESIDRIX) 25 mg tablet Take 1 tablet by mouth once daily. 90 tablet 0 celecoxib (CELEBREX) 200 mg capsule Take 1 capsule by mouth once daily. 60 capsule 1 hydroCHLOROthiazide (HYDRODIURIL, ESIDRIX) 12.5 mg tablet Take 12.5 mg by mouth once daily. carvedilol (COREG) 6.25 mg tablet Take 6.25 mg by mouth twice daily. Pt takes two tablets in the am and two tablets in the pm. (Patient not taking: No sig reported) olmesartan medoxomil (OLMESARTAN ORAL) Take 20 mg by mouth once daily. (Patient not taking: No sig reported) No current facility-administered medications for this visit. ALLERGIES Allergen Reactions Compazine [Prochlor* Other: See Comments ' eyes rolled,neck drawn done There is no problem list on file for this patient. Objective: On physical examination, the patient is a well appearing female in no respiratory distress. The patient is awake, alert and oriented to person, place and time. Body mass index is 23.76 kg/m . Respirations are 18 and comfortable. Examination of the patient s gait finds it to be nonantalgic, steady and well balanced. Inspection of the bilateral lower extremities does not demonstrate color, temperature or trophic changes. There is satisfactory alignment and no asymmetry. The patient is able to straight leg raise bilaterallyWithout pain. Leg lengths are equal. Examination of the left hip shows flexion of 110 degrees, internal rotation of 15 degrees and external rotation is 15 degrees. The skin is noted to be intact. There is no lymphadenopathy. There is tenderness over the trochanteric bursal region to palpation. The left lower extremity is otherwise neurovascularly intact. Examination of the right hip shows flexion of 110 degrees, internal rotation of 15 degrees and external rotation is 15 degrees. The skin is noted to be intact. There is no lymphadenopathy. There is not tenderness over the trochanteric bursal region to palpation. The right lower extremity is otherwise neurovascularly intact. Further examination of the bilateral lower extremities finds satisfactory ankle dorsiflexion and plantar flexion strength. Sensation is intact to light touch distally. Distal pulses are palpable. The feet are warm and viable and there is brisk capillary refill. Laurel Hip Score: see report Radiographs: Radiographs are reviewed from office today including AP pelvis and lateral view of the Left hip. Per my interpretation, these show no evidence of hip DJD bilateral hips Assessment: The primary encounter diagnosis was Trochanteric bursitis of left hip. A diagnosis of Hip abductor tendonitis, left was also pertinent to this visit. Plan: The clinical and radiographic findings as well as the risks, benefits and alternatives of treatment have been reviewed in detail with the patient. For pain management purposes they may take OTC NSAIDs such as Advil or Aleve, and Tylenol if tolerated and if the patient knows of no allergies or contraindications. The risks and complications of these medications were discussed. The patient understands that if they are currently taking a NSAIDs or are prescribed one in the future they should not take Advil, Aleve, ibuprofen, naproxen or other OTC NSAIDs. They were also told that if any unusual symptoms develop, that the medication should be stopped immediately and that their primary care physician as well as our office should be notified. If they take this medication ocean transportation intermediary, they understand the need for medication monitoring through their primary care physician. They are aware of the potential risks and side effects of this medication as well as the expected benefits, and wishes to proceed with its use. Hip conditioning exercises given today The patient will return in as needed to assess their response to the above treatment plan, sooner if there are questions or problems. REVIEW OF SYSTEMS: GENERAL: Well developed, well nourished. No acute distress PAIN: Pain yes CARDIOVASCULAR: Negative for chest pain, leg swelling and palpations. MSK: Negative for joint swelling SKIN: Negative for lesions, rash, itching, metal sensitivity NEURO: Negative for seizure, trauma, numbness/tingling of extremities. ENDOCRINE: Negative for diabetic associated symptoms HEMATOLOGY: Clots hx of documented in this encounter [facility] 10-27-2021 Note HNO ID: [id number] Author: Holden Guy Jr., MD Service: ? Author Type: Physician Type: Progress Notes Filed: 10/27/2021 6:41 AM Note Text: Holden Guy Jr., M.Laura. [address] [place] [address] Date of Evaluation: 10/26/2021 Patient Name: Emmanuelle Abreu : 1950 Chief Complaint: Patient presents with: Yearly Exam: Physical Nursing Intake: There are no exam notes on file for this visit. Subjective Ms. Abreu is a 70 year old female who presents with the following complaint(s): HPI Pt is here to establish. She has a long history of hypertension, currently managed with 12.5 mg hctz daily having stopped coreg twice daily and olmesartan once daily. She does take 10 mg felodipine ER. She has an easily upset stomach and takes tylenol for left hip pain without much benefit. Wonders about seeing an orthopedist. Review of Systems Constitutional: Negative for fever and weight loss. HENT: Negative for congestion, ear pain and nosebleeds. Eyes: Negative for blurred vision and double vision. Respiratory: Negative for cough and shortness of breath. Cardiovascular: Negative for chest pain and palpitations. Gastrointestinal: Negative for abdominal pain and heartburn. Genitourinary: Negative for dysuria and frequency. Musculoskeletal: Positive for joint pain. Negative for back pain and myalgias. Skin: Negative for itching and rash. Neurological: Negative for dizziness and focal weakness. Psychiatric/Behavioral: Negative for depression. The patient is not nervous/anxious. PAST MEDICAL HISTORY Diagnosis Date DVT (deep venous thrombosis) (HCC) 1999 L LE DVT following bunion surgery Hypertension 2006 PAST SURGICAL HISTORY Procedure Laterality Date CORRECTION OF BUNION 01/1999 FAMILY HISTORY Problem Relation Age of Onset other (ALS) Mother age 73 ALS Cancer Father age 88 lung CA Ischemic Heart Disease Father HI age 80's in setting of chemotherapy Heart Maternal Aunt maternal aunt with atrial fibrillation Ischemic Heart Disease Maternal Uncle CAD HI age 60-70's? Social History Tobacco Use Smoking status: Never Smokeless tobacco: Never Substance Use Topics Alcohol use: Yes Comment: 1 sevring wine/daily Drug use: No Current Meds felodipine ER (PLENDIL) 10 mg 24 hr tablet hydroCHLOROthiazide (HYDRODIURIL, ESIDRIX) 12.5 mg capsule Take 12.5 mg by mouth once daily. hydroCHLOROthiazide (HYDRODIURIL, ESIDRIX) 25 mg tablet Take 1 tablet by mouth once daily. celecoxib (CELEBREX) 200 mg capsule Take 1 capsule by mouth once daily. carvedilol (COREG) 6.25 mg tablet Take 6.25 mg by mouth twice daily. Pt takes two tablets in the am and two tablets in the pm. (Patient not taking: Reported on 10/26/2021) olmesartan medoxomil (OLMESARTAN ORAL) Take 20 mg by mouth once daily. (Patient not taking: Reported on 10/26/2021) hydroCHLOROthiazide (HYDRODIURIL, ESIDRIX) 12.5 mg tablet Take 12.5 mg by mouth once daily. I have confirmed and edited as necessary the chief complaint, medications, past medical, family and social histories obtained by others. Objective BP 134/87 Pulse 64 Ht 5' 5.5 (1.66m) Wt 0 lb (0.0kg) SpO2 98% Physical Exam Vitals and nursing note reviewed. HENT: Head: Normocephalic. Right Ear: External ear normal. Left Ear: External ear normal. Eyes: Pupils: Pupils are equal, round, and reactive to light. Cardiovascular: Rate and Rhythm: Normal rate and regular rhythm. Heart sounds: Normal heart sounds. Pulmonary: Effort: Pulmonary effort is normal. Breath sounds: Normal breath sounds. Abdominal: General: Bowel sounds are normal. Palpations: Abdomen is soft. There is no mass. Musculoskeletal: General: No tenderness. Normal range of motion. Cervical back: Normal range of motion and neck supple. Lymphadenopathy: Cervical: No cervical adenopathy. Skin: General: Skin is warm and dry. Neurological: Mental Status: She is alert and oriented to person, place, and time. Gait: Gait is intact. Deep Tendon Reflexes: Reflexes are normal and symmetric. Psychiatric: Mood and Affect: Mood and affect normal. ASSESSMENT/PLAN: 1. Hypertension, essential - ICD9: 401.9, ICD10: I10 (primary diagnosis) - suboptimal control - Increase hctz to 25 mg daily - Recommended regular aerobic exercise. - Recommend home blood pressure monitoring, to bring results in on next visit - Goal of BP <130/80 - HYDROCHLOROTHIAZIDE 25 MG TABLET 2. Hip pain - ICD9: 719.45, ICD10: M25.559 - CONSULT TO ORTHOPAEDICS - CELECOXIB 200 MG CAPSULE Discussed increased dose of hctz to lower both systolic and diastolic Bps, addition of Celebrex for hip pain that will NOT likely bother her stomach and agree to consult orthopedist in her area but can cancel consult if Celebrex is e (more content not included)... [facility] 10-27-2021 History of Present illness Narrative Images from the original note were not included. Holden Guy Jr., M.D. [facility] [address] [address] Date of Evaluation: 10/26/2021 Patient Name: Emmanuelle Abreu : 1950 Chief Complaint: Patient presents with: Yearly Exam: Physical Nursing Intake: There are no exam notes on file for this visit. Subjective Ms. Abreu is a 70 year old female who presents with the following complaint(s): HPI Pt is here to establish. She has a long history of hypertension, currently managed with 12.5 mg hctz daily having stopped coreg twice daily and olmesartan once daily. She does take 10 mg felodipine ER. She has an easily upset stomach and takes tylenol for left hip pain without much benefit. Wonders about seeing an orthopedist. Review of Systems Constitutional: Negative for fever and weight loss. HENT: Negative for congestion, ear pain and nosebleeds. Eyes: Negative for blurred vision and double vision. Respiratory: Negative for cough and shortness of breath. Cardiovascular: Negative for chest pain and palpitations. Gastrointestinal: Negative for abdominal pain and heartburn. Genitourinary: Negative for dysuria and frequency. Musculoskeletal: Positive for joint pain. Negative for back pain and myalgias. Skin: Negative for itching and rash. Neurological: Negative for dizziness and focal weakness. Psychiatric/Behavioral: Negative for depression. The patient is not nervous/anxious. PAST MEDICAL HISTORY Diagnosis Date DVT (deep venous thrombosis) (HCC) 1999 L LE DVT following bunion surgery Hypertension 2006 PAST SURGICAL HISTORY Procedure Laterality Date CORRECTION OF BUNION 01/1999 FAMILY HISTORY Problem Relation Age of Onset other (ALS) Mother age 73 ALS Cancer Father age 88 lung CA Ischemic Heart Disease Father HI age 80's in setting of chemotherapy Heart Maternal Aunt maternal aunt with atrial fibrillation Ischemic Heart Disease Maternal Uncle CAD HI age 60-70's? Social History Tobacco Use Smoking status: Never Smokeless tobacco: Never Substance Use Topics Alcohol use: Yes Comment: 1 sevring wine/daily Drug use: No Current Meds felodipine ER (PLENDIL) 10 mg 24 hr tablet hydroCHLOROthiazide (HYDRODIURIL, ESIDRIX) 12.5 mg capsule Take 12.5 mg by mouth once daily. hydroCHLOROthiazide (HYDRODIURIL, ESIDRIX) 25 mg tablet Take 1 tablet by mouth once daily. celecoxib (CELEBREX) 200 mg capsule Take 1 capsule by mouth once daily. carvedilol (COREG) 6.25 mg tablet Take 6.25 mg by mouth twice daily. Pt takes two tablets in the am and two tablets in the pm. (Patient not taking: Reported on 10/26/2021) olmesartan medoxomil (OLMESARTAN ORAL) Take 20 mg by mouth once daily. (Patient not taking: Reported on 10/26/2021) hydroCHLOROthiazide (HYDRODIURIL, ESIDRIX) 12.5 mg tablet Take 12.5 mg by mouth once daily. I have confirmed and edited as necessary the chief complaint, medications, past medical, family and social histories obtained by others. Objective BP 134/87 Pulse 64 Ht 5' 5.5 (1.66m) Wt 0 lb (0.0kg) SpO2 98% Physical Exam Vitals and nursing note reviewed. HENT: Head: Normocephalic. Right Ear: External ear normal. Left Ear: External ear normal. Eyes: Pupils: Pupils are equal, round, and reactive to light. Cardiovascular: Rate and Rhythm: Normal rate and regular rhythm. Heart sounds: Normal heart sounds. Pulmonary: Effort: Pulmonary effort is normal. Breath sounds: Normal breath sounds. Abdominal: General: Bowel sounds are normal. Palpations: Abdomen is soft. There is no mass. Musculoskeletal: General: No tenderness. Normal range of motion. Cervical back: Normal range of motion and neck supple. Lymphadenopathy: Cervical: No cervical adenopathy. Skin: General: Skin is warm and dry. Neurological: Mental Status: She is alert and oriented to person, place, and time. Gait: Gait is intact. Deep Tendon Reflexes: Reflexes are normal and symmetric. Psychiatric: Mood and Affect: Mood and affect normal. ASSESSMENT/PLAN: 1. Hypertension, essential - ICD9: 401.9, ICD10: I10 (primary diagnosis) - suboptimal control - Increase hctz to 25 mg daily - Recommended regular aerobic exercise. - Recommend home blood pressure monitoring, to bring results in on next visit - Goal of BP <130/80 - HYDROCHLOROTHIAZIDE 25 MG TABLET 2. Hip pain - ICD9: 719.45, ICD10: M25.559 - CONSULT TO ORTHOPAEDICS - CELECOXIB 200 MG CAPSULE Discussed increased dose of hctz to lower both systolic and diastolic Bps, addition of Celebrex for hip pain that will NOT likely bother her stomach and agree to consult orthopedist in her area but can cancel consult if Celebrex is effective. Recheck BP in 3 - 4 months. Holden Guy Jr, MD Return in about 3 months (around 01/25/2022). The above diagnoses & plan of care have been created and agreed upon with the patient. This note was partially generated using [employer] voice recognition system, and there may be some incorrect words, spellings, and punctuation that were not noted in checking the note before saving. documented in this encounter [facility] 10-26-2021 Miscellaneous Notes ORTHO Referral place through the [facility] Portal on October 26, 2021. #[id number] Preferred Provider Zoë Donovan documented in this encounter [facility] Evaluation note Diagnosis Hypertension, essential- Primary Unspecified essential hypertension Hip pain Pain in joint, pelvic region and thigh [facility] Diagnosis Trochanteric bursitis of left hip- Primary Enthesopathy of hip region Hip abductor tendonitis, left [facility] Hypertension, essential Unspecified essential hypertension [facility] Diagnosis Alopecia areata- Primary Vitamin D deficiency Unspecified vitamin D deficiency [facility] Diagnosis Hypertension, essential- Primary Unspecified essential hypertension Encounter for screening mammogram for malignant neoplasm of breast Other screening mammogram Screening for osteoporosis Special screening for osteoporosis Senile osteoporosis Age related osteoporosis, unspecified pathological fracture presence [facility] Diagnosis Hypertension, essential Unspecified essential hypertension [facility] Diagnosis Hypertension, essential Unspecified essential hypertension [facility] Diagnosis Hyperlipidemia, unspecified documented in this encounter [facility] Work Phone: Evaluation noteNo assessment information available [facility] Work Phone: Instructions* Name Dates Details Patient Instructions Indication:Nonsmoker Start:25-Jul-2022 Instruction Type:Provider Instructions for Treatment How to Access Health Informa tion Online using Patient Portal and [employer] Apps Indication:Nonsmoker Start:25-Jul-2022 Instruction Type:Patient Education [facility] Work Phone: Inskajowilou* Name Dates Details Patient Instructions Indication:Nonsmoker Start:25-Jul-2022 Instruction Type:Provider Instructions for Treatment How to Access Health Informa tion Online using Patient Portal and [employer] Apps Indication:Nonsmoker Start:25-Jul-2022 Instruction Type:Patient Education [facility]; [facility] Work Phone: Insdaamckqzu* Name Dates Details Patient Instructions Indication:Nonsmoker Start:09-Oct-2022 Instruction Type:Provider Instructions for Treatment How to Access Health Informa tion Online using Patient Portal and [employer] Apps Indication:Nonsmoker Start:09-Oct-2022 Instruction Type:Patient Education Patient Instructions Indication:Nonsmoker Start:25-Jul-2022 Instruction Type:Provider Instructions for Treatment How to Access Health Informa tion Online using Patient Portal and [employer] Apps Indication:Nonsmoker Start:25-Jul-2022 Instruction Type:Patient Education [facility]; [facility] Work Phone: Insncvoewpsq* Name Dates Details Patient Instructions Indication:Nonsmoker Start:09-Oct-2022 Instruction Type:Provider Instructions for Treatment How to Access Health Informa tion Online using Patient Portal and [employer] Apps Indication:Nonsmoker Start:09-Oct-2022 Instruction Type:Patient Education Patient Instructions Indication:Nonsmoker Start:25-Jul-2022 Instruction Type:Provider Instructions for Treatment How to Access Health Informa tion Online using Patient Portal and [employer] Apps Indication:Nonsmoker Start:25-Jul-2022 Instruction Type:Patient Education [facility]; [facility] Work Phone: reason for referral (narrative)* Diagnostic Procedure Only (Routine) - Pending Review Specialty Diagnoses / Procedures Referred By Cristina davis Referred To Contact XR IMAGING Diagnoses Age related osteoporosis, unspecified pathological fracture presence Procedures DXA-AXIAL SKELETON WITH VFA DXA BONE DENSITY STUDY AXIAL SKELETON Holden Guy Jr., MD [address] [place] [id number] Xr Imaging Referral ID Status Reason Start Date Expiration Date Visits Requested Visits Authorized [id number] Pending Review Auto-Generat ed Referral 02/03/2022 03/05/2023 1 1 * Diagnostic Procedure Only (Routine) - Pending Review Specialty Diagnoses / Procedures Referred By Cristina davis Referred To Contact BR IMAGING Diagnoses Encounter for screening mammogram for malignant neoplasm of breast Procedures JAYDEN SCREENING SCREENING MAMMOGRAPHY BI 2-VIEW BREAST INC CAD Holden Guy Jr., MD [address] [place] [address] [facility] [address] [facility] [place] [address] Referral ID Status Reason Start Date Expiration Date Visits Requested Visits Authorized [id number] Pending Review Auto-Generat ed Referral 02/03/2022 03/05/2023 1 1 [facility] for referral (narrative)No reason for referral information [facility]WA[facility]ita [facility] Work Phone: Summary Purpose Family History No Family History Records FoundUnknown Family Member Name Dates Details Daughter 1 Comments:Breast cancer. Status:Active Father Comments:. Lung Canc er, Heart disease Status:Active Mother Comments:ALS, at 73 Status:Active Son 1 Comments:In good health. HTN , High chol Status:Active Unknown Family Member Name Dates Details Daughter 1 Comments:Breast cancer. Status:Active Father Comments:. Lung Canc er, Heart disease Status:Active Mother Comments:ALS, at 73 Status:Active Son 1 Comments:In good health. HTN , High chol Status:Active Unknown Family Member Name Dates Details Daughter 1 Comments:Breast cancer. Status:Active Father Comments:. Lung Canc er, Heart disease Status:Active Mother Comments:ALS, at 73 Status:Active Son 1 Comments:In good health. HTN , High chol Status:Active Unknown Family Member Name Dates Details Daughter 1 Comments:Breast cancer. Status:Active Father Comments:. Lung Canc er, Heart disease later in life. smoker HTN Status:Active heart disease on mother side Status:Active Mother Comments:ALS, at 73, [place] d two DVT Status:Active sister--homozyg.MTHFR Status:Active Son 1 Comments:In good health. HTN , High chol Status:Active Unknown Family Member Name Dates Details Daughter 1 Comments:Breast cancer. Status:Active Father Comments:. Lung Canc er, Heart disease later in life. smoker HTN Status:Active heart disease on mother side Status:Active Mother Comments:ALS, at 73, [place] d two DVT Status:Active sister--homozyg.MTHFR Status:Active Son 1 Comments:In good health. HTN , High chol Status:Active Unknown Family Member Name Dates Details Daughter 1 Comments:Breast cancer. Status:Active Father Comments:. Lung Canc er, Heart disease later in life. smoker HTN Status:Active heart disease on mother side Status:Active Mother Comments:ALS, at 73, [place] d two DVT Status:Active sister--homozyg.MTHFR Status:Active Son 1 Comments:In good health. HTN , High chol Status:Active Unknown Family Member Name Dates Details Daughter 1 Comments:Breast cancer. Status:Active Father Comments:. Lung Canc er, Heart disease later in life. smoker HTN Status:Active heart disease on mother side Status:Active Mother Comments:ALS, at 73, [place] d two DVT Status:Active sister--homozyg.MTHFR Status:Active Son 1 Comments:In good health. HTN , High chol Status:Active Advance Directives No Advanced Directives Records FoundNo Advanced Directives Records FoundNo Advanced Directives Records FoundNo Advanced Directives Records FoundNo Advanced Directives Records FoundNo Advanced Directives Records Found Reason for Referral Specialty Diagnoses / Procedures Referred By Contpriya t Referred To Contact Orthopedics Diagnoses Hip pain Procedures CONSULT TO ORTHOPAEDICS OFFICE/OUTPATIENT [facility] 60-74 MINUTES Holden Guy Jr., MD [address] [place] [address] Referral ID Status Reason Start Date Expiration Date Visits Requested Visits Authorized [id number] Authorized PCP Requested Referral 10/26/2021 10/26/2022 1 1 Specialty Diagnoses / Procedures Referred By Contac t Referred To Contact Radiology Diagnoses Hyperlipidemia, unspecified Procedures CT cardiac scoring wo IV contrast Marcella Aguilar MD [address] [facility] [address] [place] [address] Referral ID Status Reason Start Date Expiration Date Visits Requested Visits Authorized [id number] Pending Review Perform Procedure 08/06/2023 08/05/2024 1 1 Chief Complaint and Reason for Visit Chief Complaint Admit Date POSTMENOPAUSAL STATUS July 22, 2024 11: 38am RT BREAST ABN MAMM July 25, 2024 12:34 pm Additional Source Comments INFORMATION SOURCE (unrecogn ized section and content) DATE CREATED AUTHOR 04/17/2018 [facility] DATE CREATED AUTHOR AUTHOR'S ORGANIZ ATION 01/31/2022 [facility] DATE CREATED AUTHOR AUTHOR'S ORGANIZ ATION 03/08/2022 [facility] DATE CREATED AUTHOR AUTHOR'S ORGANIZ ATION 06/29/2022 [facility] DATE CREATED AUTHOR AUTHOR'S ORGANIZ ATION 11/28/2023 [facility] DATE CREATED AUTHOR AUTHOR'S ORGANIZ ATION 09/22/2024 [facility] Source Comments (unrecognize d section and content) In the event this informatio n is protected by the Federal Confidentiality of Alcohol and Drug Abuse Patient Records regulations: The Federal rules restrict any use of the information to criminally investigate or prosecute any alcohol or drug abuse patient.[facility] the event this information is protected by the Federal Confidentiality of Alcohol and Drug Abuse Patient Records regulations: The Federal rules restrict any use of the information to criminally investigate or prosecute any alcohol or drug abuse patient.[facility] the event this information is protected by the Federal Confidentiality of Alcohol and Drug Abuse Patient Records regulations: The Federal rules restrict any use of the information to criminally investigate or prosecute any alcohol or drug abuse patient.[facility] the event this information is protected by the Federal Confidentiality of Alcohol and Drug Abuse Patient Records regulations: The Federal rules restrict any use of the information to criminally investigate or prosecute any alcohol or drug abuse patient.[facility] the event this information is protected by the Federal Confidentiality of Alcohol and Drug Abuse Patient Records regulations: The Federal rules restrict any use of the information to criminally investigate or prosecute any alcohol or drug abuse patient.[facility] the event this information is protected by the Federal Confidentiality of Alcohol and Drug Abuse Patient Records regulations: The Federal rules restrict any use of the information to criminally investigate or prosecute any alcohol or drug abuse patient.[facility] the event this information is protected by the Federal Confidentiality of Alcohol and Drug Abuse Patient Records regulations: The Federal rules restrict any use of the information to criminally investigate or prosecute any alcohol or drug abuse patient.[facility] the event this information is protected by the Federal Confidentiality of Alcohol and Drug Abuse Patient Records regulations: The Federal rules restrict any use of the information to criminally investigate or prosecute any alcohol or drug abuse patient.[facility] the event this information is protected by the Federal Confidentiality of Alcohol and Drug Abuse Patient Records regulations: The Federal rules restrict any use of the information to criminally investigate or prosecute any alcohol or drug abuse patient.[facility] the event this information is protected by the Federal Confidentiality of Alcohol and Drug Abuse Patient Records regulations: The Federal rules restrict any use of the information to criminally investigate or prosecute any alcohol or drug abuse patient.[facility] the event this information is protected by the Federal Confidentiality of Alcohol and Drug Abuse Patient Records regulations: The Federal rules restrict any use of the information to criminally investigate or prosecute any alcohol or drug abuse patient.[facility] the event this information is protected by the Federal Confidentiality of Alcohol and Drug Abuse Patient Records regulations: The Federal rules restrict any use of the information to criminally investigate or prosecute any alcohol or drug abuse patient.[facility] the event this information is protected by the Federal Confidentiality of Alcohol and Drug Abuse Patient Records regulations: The Federal rules restrict any use of the information to criminally investigate or prosecute any alcohol or drug abuse patient.[facility] Reason for Visit (unrecogniz ed section and content) Reason Comments Referral Information ORTHOPEDICS Reason Comments Yearly Exam Physical Reason Comments New Pain Reason Comments Results Reason Comments Opened In Error Reason Comments Refill Request Reason Comments Orders Reason Comments Blood Pressure Check Reason Comments Referral Request Endo Specialty Diagnoses / Procedures Referred By Cristina davis Referred To Contact Radiology Diagnoses Hyperlipidemia, unspecified Procedures CT cardiac scoring wo IV contrast Marcella Aguilar MD [address] [facility] [address] [place] [address] Referral ID Status Reason Start Date Expiration Date Visits Requested Visits Authorized [id number] Pending Review Perform Procedure 08/06/2023 08/05/2024 1 1 Care Teams (unrecognized sec tion and content) Corporate Wellness Coordinator Relationship Specialty Start Date End Date Holdne Guy Jr., MD [address] [place] [address] PCP - General Family Practice 10/26/21 No, Referral Referring 04/10/18 Corporate Wellness Coordinator Relationship Specialty Start Date End Date Holden Guy Jr., MD [address] [place] [address] PCP - General Family Practice 10/26/21 No, Referral Referring 04/10/18 Corporate Wellness Coordinator Relationship Specialty Start Date End Date Holden Guy Jr., MD [address] [place] [address] PCP - General Family Medicine 10/26/21 No, Referral Referring 04/10/18 Corporate Wellness Coordinator Relationship Specialty Start Date End Date Holden Guy Jr., MD [address] [place] [address] PCP - General Family Medicine 10/26/21 No, Referral Referring 04/10/18 Corporate Wellness Coordinator Relationship Specialty Start Date End Date Holden Guy Jr., MD [address] [address] [place] [address] PCP - General Family Medicine 10/26/21 No, Referral Referring 04/10/18 Corporate Wellness Coordinator Relationship Specialty Start Date End Date Holden Guy Jr., MD [address] [facility] [address] [place] [address] PCP - General Family Medicine 10/26/21 No, Referral Referring 04/10/18 Corporate Wellness Coordinator Relationship Specialty Start Date End Date Holden Guy Jr., MD [address] [facility] [address] [place] [address] PCP - General Family Medicine 10/26/21 No, Referral Referring 04/10/18 Corporate Wellness Coordinator Relationship Specialty Start Date End Date Holden Guy Jr., MD [address] [address] [place] [address] PCP - General Family Medicine 10/26/21 No, Referral Referring 04/10/18 Corporate Wellness Coordinator Relationship Specialty Start Date End Date Holden Guy Jr., MD [address] [facility] [address] [place] [address] PCP - General Family Medicine 10/26/21 No, Referral Referring 04/10/18 Corporate Wellness Coordinator Relationship Specialty Start Date End Date Holden Guy Jr., MD [address] [place] [address] PCP - General Family Medicine 10/26/21 No, Referral Referring 04/10/18 Corporate Wellness Coordinator Relationship Specialty Start Date End Date Holden Guy Jr., MD [address] [place] [address] PCP - General Family Medicine 10/26/21 No, Referral Referring 04/10/18 Corporate Wellness Coordinator Relationship Specialty Start Date End Date Marcella Aguilar MD [facility] [address] [address] PCP - General Internal Medicine 10/23/23 Team Status: Active Member Role Status Dates Dr. Marcella Aguilar MD Primary Care Provider Active Team Status: Inactive Member Role Status Dates Dr. Macrella Aguilar MD Primary Care Provider Active Start: July 22, 2024 End: July 22, 2024 Dr. Marcella Aguilar MD Attending Provider Active Start: July 22, 2024 End: July 22, 2024 Dr. Marcella Aguilar MD Referring Provider Active Start: July 22, 2024 End: July 22, 2024 Team Status: Active Member Role Status Dates Dr. Marcella Aguilar MD Primary Care Provider Active Start: July 25, 2024 Dr. Marcella Aguilar MD Attending Provider Active Start: July 25, 2024 Dr. Marcella Aguilar MD Referring Provider Active Start: July 25, 2024 Team Status: Inactive Member Role Status Dates Dr. Marcella Aguilar MD Primary Care Provider Active Start: July 25, 2024 End: July 25, 2024 Dr. Marcella Aguilar MD Attending Provider Active Start: July 25, 2024 End: July 25, 2024 Dr. Marcella Aguilar MD Referring Provider Active Start: July 25, 2024 End: July 25, 2024 Goals (unrecognized section and content) Goals may be documented in a n alternate sectionGoals may be documented in an alternate section FOR RECORDS PERTAINING TO PATIENTS WHO ARE OR HAVE BEEN ENROLLED IN A CHEMICAL DEPENDENCY/SUBSTANCEABUSE PROGRAM, SOME INFORMATION MAY BE OMITTED. This clinical summary was aggregated from multiple sources. Caution should be exercised in using it in the provision of clinical care. This summary normalizes information from multiple sources, and as a consequence, information in this document may materially change the coding, format and clinical context of patient data. In addition, data may be omitted in some cases. CLINICAL DECISIONS SHOULD BE BASED ON THE PRIMARY CLINICAL RECORDS. [employer] [facility]. provides no warranty or guarantee of the accuracy or completeness of information in this document.
== END | disposition home or self-care (01) ==
LOC: US 12:16
PROVIDERS: PCP Internal Medicine; Referring Provider Internal Medicine; Visit Provider Internal Medicine
DX: R10.9 Unspecified abdominal pain (principal)
CPT/HCPCS: 76830

== ENCOUNTER → 2024-11-10 | Outpatient (CLI) | payer MEDICARE, OTHER, SELFPAY ==
--- NOTE | 2024-11-10 12:18 | US_ITS ---
PROCEDURE: BREAST LIMITED UNILATERAL 11/10/2024 REASON FOR EXAM: F, Age 73 y/o , ABN US Right breast mass. Short-term follow-up exam. Evaluate. Document stability. COMPARISON: Right breast ultrasound dated 07/25/2024 and mammogram studies dated 07/25/2024 and 07/22/2024. TECHNIQUE: Procedure Code: USBRSTLIMIT Modality: US Procedure: BREAST LIMITED UNILATERAL FINDINGS: There is a stable, benign-appearing lymph node identified in the right breast at the 11 o'clock, 10 cm from nipple position measuring 1.3 x 0.8 x 0.4 cm. The cortex measures 2 mm. It has a fatty hilum. Incidentally noted while scanning in the right breast is a ridge of dense glandular tissue at the 12 o'clock, 5 cm from the nipple position which appears to have fibrocystic changes throughout it. No suspicious solid masses are seen. US/Breast Limited Unilateral IMPRESSION: Benign appearing stable mass is seen in the right breast. The patient should return in June 2025 for routine yearly screening mammography. BI-RADS 2: BENIGN RECOMMENDATION: Routine annual follow-up in 1 Year Reading Location: [id number]
== END | disposition home or self-care (01) ==
LOC: OPUS 12:18
PROVIDERS: PCP Internal Medicine; Referring Provider Internal Medicine; Visit Provider Internal Medicine
DX: R92.8 Other abnormal and inconclusive findings on diagnostic imaging of breast (principal)
CPT/HCPCS: 76642

== ENCOUNTER → 2025-01-12 | Outpatient (CLI) | payer MEDICARE, OTHER, SELFPAY ==
[2025-01-12 15:23] LABS: Osmolality, Serum 296 mOsm/KG (280-301)
[2025-01-12 15:28] LABS: Anion Gap 10 (5-15); BUN 17 mg/dL (4-19); BUN/Creat Ratio 21.9 RATIO (10-20); Calcium,Total 9.4 mg/dL (7.6-11.0); Carbon Dioxide 26.3 mmol/L (21.0-32.0); Chloride 102 mmol/L (98-108); Glucose 85 mg/dL (70-99); Potassium 3.4 mmol/L (3.3-5.1); Vitamin D,25 Hydroxy 53.3 ng/mL (30-100)
[2025-01-12 15:33] LABS: PTHIN 53 pg/mL (11-61)
[2025-01-12 19:56] LABS: Calcium Urine pH Range 2
[2025-01-12 20:42] LABS: (24 HR) Urine Calcium 187.8 mg/24 HR (100.0-300.0)
[2025-01-14 15:08] LABS: PROEL- A/G Ratio 1.2 (0.7-1.7); PROEL- Albumin 3.9 g/dL (2.9-4.4); PROEL- Alpha-1 Globulin 0.2 g/dL (0.0-0.4); PROEL- Alpha-2 Globulin 0.7 g/dL (0.4-1.0); PROEL- Beta Globulin 1.0 g/dL (0.7-1.3); PROEL- Gamma Globulin 1.3 g/dL (0.4-1.8); PROEL- Globulin, Total 3.2 g/dL (2.2-3.9); PROEL- TOTAL PROTEIN 7.1 g/dL (6.0-8.5); PROEL-M-Spike Not Observed g/dL (Not Observed)
== END | disposition home or self-care (01) ==
LOC: CIMLAB 13:08
PROVIDERS: PCP Internal Medicine; Referring Provider Internal Medicine; Visit Provider Internal Medicine
DX: E87.1 Hypo-osmolality and hyponatremia (principal); M81.0 Age-related osteoporosis without current pathological fracture
CPT/HCPCS: 36415; 80048; 81050; 82306; 82340; 83930; 83935; 83970; 84165; 84166